=== PATIENT | male | born 1970 | race Caucasian/White ===

== ENCOUNTER → 2016-07-13 | Outpatient (CLI) | payer BC, OTHER ==
[~2016-07-13] VITALS: Ht 177.8 cm; Wt 78.5 kg
[~2016-07-13] MED LIST: AAA; AMBIEN 5 MG TABL5 M1 PO; ANDROGEL150 GM; ANDROGEL150 GM TD; DILAUDID 4 MG TA4 M1 PO; DOLOPHINE HCL10 MG PO; DOLOPHINE HCL5 MG PO; ENDOCET 10-3251 EACH PO; INTERMEZZO1.75 MG SL; LISINOPRIL20 MG PO; LYRICA 50 MG50 MG PO; LYRICA 75 MG CA75 MG PO; LYRICA PO; LYRICA100 MG PO; LYRICA25 PO; METHADONE HCL 110 M1 PO; METHADOSE10 M1 PO; METHADOSE10 MG PO; NUCYNTA100 MG PO; PERCOCET 10-321 EACH PO; REMERON15 M1 PO; REMERON15 MG PO; XANAX 0.25 MG0.25 MG PO; ZANAFLEX4 MG PO
--- NOTE | ~2016-07-13 | HPC ---
[facility] [place] [address] PAIN MANAGEMENT CONSULTATION Name: FREDDY CLOUD YUSEF Room #: REG NEPTALI Finley#: [id number] Admission: 07/13/16 Attend Phys: Nilson Tarango DO Discharge: Date of : 70 Report #: [id number] THIS REPORT FOR: //name// CC: Nilson Madden HISTORY OF PRESENT ILLNESS: The patient is a pleasant 46-year-old gentleman long treated for symptomatic lumbar radiculopathy status post decompressive laminectomy, axial back pain requiring complex medication management. He has a spinal cord stimulator in place. He has been stable on methadone 10 mg t.i.d., Percocet 10/325 one tablet up to 4 times a day, limiting 100 tablets for 30 days. Last urine drug screen 07/29/2015 was positive for prescribed medications. He returns to pain clinic today. He notes medications still provide sufficient analgesia to participate in activities of daily living, rates his average pain about 6/10. 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 He has had more stress at work and increased work load, which is somewhat exacerbated pain. We did talk today at length about need for work and relaxation balance about taking time to exercise and decompress. He understands the importance of this, but ruefully admits that he fails to provide himself at this time. Notes his spinal cord stimulator continued to help to some degree. Primary pain is low back, right leg down to the heel. Pain is a 6/10, exacerbated with activity. PHYSICAL EXAMINATION: Unchanged, pleasant 46-year-old gentleman, BMI is 24.8 kilograms per meter squared. Vital signs stable. Rises from chair using armrest, modestly antalgic gait. Lumbar flexion is limited, favors the right leg, but strength is generally symmetric. We reviewed the fact that opiate medications are being used to provide analgesia adequate to support activities of daily living, not attempting to achieve a specific pain score on the 0-10 Visual Analog Scale. The current opiate medications are providing sufficient analgesia to allow the patient to participate in activities of daily living. The patient is not exhibiting any aberrant behavior suggestive of drug diversion. The patient is not having any adverse reactions to medications. The patient is not suffering from daytime somnolence or mental acuity changes. The patient is managing opiate-induced constipation with appropriate oled-lih-ovklhfp agents and dietary considerations. The patient was counseled on concern for caution with operating a motor vehicle while using opiate medications. A physical exam was performed and the patient's functional status was evaluated. All patients with back pain were advised against the bed rest greater than 4 days and were advised to return to normal activities. [place] [address] PAIN MANAGEMENT CONSULTATION Name: FREDDY CLOUD Room #: REG NEPTALI Finley#: [id number] Admission: 07/13/16 Attend Phys: Nilson Tarango DO Discharge: Date of : 70 Report #: [id number] noted and the treatment plan was reviewed with the patient. All current medications, both prescribed and OTC were reviewed and reconciled on the electronic medical record. Tobacco screening was accomplished and smoking cessation was advised when indicated. BMI was noted and diet/exercise modification was recommended for all patients following outside normal parameters. I reviewed with the patient today their responsibilities to safeguard prescription medications, reviewed their responsibility to utilize medications only as prescribed by the physician. They are to seek and receive pain medications only from 1 physician group ( [facility]). They are to use 1 pharmacy and keep the clinic informed if they change pharmacies. Their responsibilities include making followup visits in a timely fashion and to avoid abrupt discontinuation of medication usage. Their responsibilities further include bringing their medications (bottles from the pharmacy with residual pills) to the visit for possible confirmation of pill counts and the patient understands it is their responsibility to submit to random drug screens to ensure both that the medications prescribed are present, and that no other controlled substances are present. All prescriptions provided today were generated electronically. ASSESSMENT: Lumbar radiculopathy status post decompressive laminectomy, axial back pain requiring complex medication management, stable on baseline medication. RECOMMENDATION: Continue methadone 10 mg t.i.d., Percocet 10/325 one tablet 3-4 times a day, limit 100 tablets for 30 days. Follow up in 3 months for reevaluation. By: [id number] Nilson Tarango DO /nt
[2016-07-13 13:15] VITALS: BP 127/80
== END ==
LOC: PAIN 06:13
DX: M54.16 Radiculopathy, lumbar region (principal); M96.1 Postlaminectomy syndrome, not elsewhere classified; I10 Essential (primary) hypertension; Z87.891 Personal history of nicotine dependence

== ENCOUNTER → 2016-10-02 | Outpatient (CLI) | payer BC, OTHER ==
[~2016-10-02] VITALS: Ht 175.3 cm; Wt 78.3 kg
--- NOTE | ~2016-10-02 | HPC ---
[facility] [place] [address] [place] [address] PAIN MANAGEMENT CONSULTATION Name: FREDYD CLOUD Room #: REG Maddy Finley#: [id number] Admission: 10/02/16 Attend Phys: Nilson Tarango DO Discharge: Date of : 70 Report #: [id number] THIS REPORT FOR: //name// CC: Nilson Madden DATE OF SERVICE: 10/02/2016 The patient is a very pleasant 46-year-old gentleman being treated for symptomatic lumbar radiculopathy status post decompressive laminectomy, axial back pain requiring complex medication management. Last seen in the pain clinic 07/13/2016. Last urine drug screen was about a year prior, 07/29/2015, positive for prescribed medications. Today, I did order a buccal drug swab, no aberrant behavior suggestive for drug diversion, simply complying with opiate consent to treat contract. The patient has continued on methadone 10 mg t.i.d. with Percocet 10/325 one tablet 3-4 times a day, limit #100 tablets for 30 days. Notes that medications are helpful, but seems to be seeing a little dwindling efficacy with the agents. Rates his pain at 3 on a VAS at present, but notes throughout the day, he sometimes has to leave work really due to ongoing axial back pain. Describes pain, primarily right low back, buttock and leg. Has a spinal cord stimulator, which has been quite effective. He did, however, tell me he got at one-time error message when charging the IPG. I suggested we will have [employer] come by at our next visit in 3 months to interrogate the battery. He probably is nearing end of IPG life and will need to have the device replaced. PHYSICAL EXAMINATION: Shows 46-year-old gentleman, BMI is 25.5 kilograms per meter squared. Vital signs stable as noted in the EMR. Rises from chair easily. Gait is modestly antalgic. Lumbar flexion is somewhat limited. The IPG site in the right gluteal area appears fine, no evidence of skin erosion. Lower extremity strength is asymmetric with slight decreased right leg strength compared to the left. Positive straight leg raise on the right as well. We reviewed the fact that opiate medications are being used to provide analgesia adequate to support activities of daily living, not attempting to achieve a specific pain score on the 0-10 Visual Analog Scale. The current opiate medications are providing sufficient analgesia to allow the patient to participate in activities of daily living. The patient is not exhibiting any aberrant behavior suggestive of drug diversion. The patient is not having any adverse reactions to medications. The patient is not suffering from daytime somnolence or mental acuity changes. The [place] [address] PAIN MANAGEMENT CONSULTATION Name: FREDDY CLOUD Room #: REG NEPTALI Finley#: [id number] Admission: 10/02/16 Attend Phys: Nilson Tarango DO Discharge: Date of : 70 Report #: [id number] constipation with appropriate pwth-ack-pemajen agents and dietary considerations. The patient was counseled on concern for caution with operating a motor vehicle while using opiate medications. A physical exam was performed and the patient's functional status was evaluated. All patients with back pain were advised against the bed rest greater than 4 days and were advised to return to normal activities. Pain score assessment was noted and the treatment plan was reviewed with the patient. All current medications, both prescribed and OTC were reviewed and reconciled on the electronic medical record. Tobacco screening was accomplished and smoking cessation was advised when indicated. BMI was noted and diet/exercise modification was recommended for all patients following outside normal parameters. I reviewed with the patient today their responsibilities to safeguard prescription medications, reviewed their responsibility to utilize medications only as prescribed by the physician. They are to seek and receive pain medications only from 1 physician group ( [facility]). They are to use 1 pharmacy and keep the clinic informed if they change pharmacies. Their responsibilities include making followup visits in a timely fashion and to avoid abrupt discontinuation of medication usage. Their responsibilities further include bringing their medications (bottles from the pharmacy with residual pills) to the visit for possible confirmation of pill counts and the patient understands it is their responsibility to submit to random drug screens to ensure both that the medications prescribed are present, and that no other controlled substances are present. All prescriptions provided today were generated electronically. ASSESSMENT: Symptomatic lumbar radiculopathy, status post decompressive laminectomy, axial back pain requiring complex medication management in a pleasant 46-year-old gentleman well known to pain clinic. We spent a prolonged visit today reviewing therapeutic options and concerns. Again, we will get a buccal drug swab today, no aberrant behavior suggestive for drug diversion, simply complying with opiate consent to treat contract. We will have [facility] available at next visit to interrogate the device, again the IPG did give the patient a one-time error message, though it has charged appropriately since that time. He may, however, be nearing end of the IPG battery life. Reviewing the chart, it appears spinal cord stimulator was implanted around summer. We will continue methadone 10 mg t.i.d. and Percocet 10/325 one tablet 3-4 times a day. With a little bit of afternoon somnolence, I talked about rotating to Nucynta. Again, equally analgesic dose will be about 100 mg Nucynta tablet, I had written for this in the past, but it was cost prohibitive, averaging about $400 even with insurance for the patient. We may consider at some point opiate rotation. Again, equally analgesic dose hydromorphone would be about 7 mg. I [facility] [address] [place] [address] PAIN MANAGEMENT CONSULTATION Name: FREDDY CLOUD Room #: REG NEPTALI Hernandez.#: [id number] Admission: 10/02/16 Attend Phys: Nilson Tarango DO Discharge: Date of : 70 Report #: [id number] would likely trial little lower dose that hydromorphone 4 mg p.r.n. breakthrough pain. Today, however, we elected to simply make no changes and continue baseline medication. Discharged in good and stable condition after prolonged visit, spent reviewing multiple therapeutic concerns including battery life for the spinal cord stimulator, opiate rotation, obtaining and reviewing our opiate consent to treat contract. Discharged in good and stable condition after 25 minutes. <ELECTRONICALLY SIGNED> By: Nilson Tarango DO 10/05/16 1253 [id number] Nilson Tarango DO /nt
[2016-10-02 09:59] VITALS: BP 126/75
== END ==
LOC: PAIN 07:02
DX: M54.16 Radiculopathy, lumbar region (principal)

== ENCOUNTER → 2017-04-08 | Outpatient (CLI) | payer BC, OTHER ==
[~2017-04-08] VITALS: Ht 177.8 cm; Wt 79.8 kg
[~2017-04-08] MED LIST changes: +PERCOCET 10-321 EAC1 PO; +PERCOCET 7.5-31 EAC1 PO; +PERCOCET 7.5-31 EACH PO
--- NOTE | ~2017-04-08 | HPC ---
[facility] [place] [address] PAIN MANAGEMENT CONSULTATION Name: FREDDY CLOUD YUSEF Room #: REG Maddy Finley#: [id number] Admission: 04/08/17 Attend Phys: Nilson Tarango DO Discharge: Date of : 70 Report #: [id number] THIS REPORT FOR: //name// CC: Nilson Madden DATE OF SERVICE: 04/08/2017 PAIN CLINIC NOTE The patient is a very pleasant 46-year-old gentleman, long treated for symptomatic lumbar radiculopathy status post decompressive laminectomy, chronic pain syndrome requiring complex medication management. He has a spinal cord stimulator in place which is nearing end of its battery life. He has an appointment with Dr. Jean for consideration for IPG replacement. He returns to pain clinic today noting current medication including methadone 10 mg t.i.d. and Percocet 10/325 one tablet 3-4 times a day. He is providing sufficient analgesia to participate in activities of daily living. 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 He notes his pain score is about a 4 on a VAS at present. Physical examination shows a 46-year-old gentleman, BMI is 25.3 kilograms per meter squared. Vital signs are stable as noted in the EMR. He is a former smoker. History of hypertension. Medication list was reconciled today. Opiate consent to treat contract was signed on 07/29/2015. Rises from chair using armrest. Diffusely tender across the low back. Lumbar flexion is limited. Lower extremity strength, however, is generally preserved with modestly positive straight leg raise, right greater than left. Slight decreased right hip flexion and plantar flexion strength. We reviewed the fact that opiate medications are being used to provide analgesia adequate to support activities of daily living, not attempting to achieve a specific pain score on the 0-10 Visual Analog Scale. The current opiate medications are providing sufficient analgesia to allow the patient to participate in activities of daily living. The patient is not exhibiting any aberrant behavior suggestive of drug diversion. The patient is not having any adverse reactions to medications. The patient is not suffering from daytime somnolence or mental acuity changes. The patient is managing opiate-induced constipation with appropriate egks-qkq-omrxdsr agents and dietary considerations. The patient was counseled on concern for caution with operating a motor vehicle while using opiate medications. A physical exam was performed and the patient's functional status was evaluated. All patients with back pain were advised against the bed rest greater than 4 days and were advised to return to normal activities. Pain score assessment was noted and the treatment plan was reviewed with the patient. All current [address] [address] PAIN MANAGEMENT CONSULTATION Name: FREDDY CLOUD Room #: REG NEPTALI Finley#: [id number] Admission: 04/08/17 Attend Phys: Nilson Tarango DO Discharge: Date of : 70 Report #: [id number] medications, both prescribed and OTC were reviewed and reconciled on the electronic medical record. Tobacco screening was accomplished and smoking cessation was advised when indicated. BMI was noted and diet/exercise modification was recommended for all patients following outside normal parameters. I reviewed with the patient today their responsibilities to safeguard prescription medications, reviewed their responsibility to utilize medications only as prescribed by the physician. They are to seek and receive pain medications only from 1 physician group ( [facility]). They are to use 1 pharmacy and keep the clinic informed if they change pharmacies. Their responsibilities include making followup visits in a timely fashion and to avoid abrupt discontinuation of medication usage. Their responsibilities further include bringing their medications (bottles from the pharmacy with residual pills) to the visit for possible confirmation of pill counts and the patient understands it is their responsibility to submit to random drug screens to ensure both that the medications prescribed are present, and that no other controlled substances are present. All prescriptions provided today were generated electronically. Long discussion with the patient today about therapeutic options, he has had a supratherapeutic load of opiate, at 4:1 conversion for methadone, 30 mg of methadone will equate to about 120 mg of morphine along with an average of 3 Percocet a day (Percocet 10/325 equating to roughly 45 mEq of morphine) for a total daily dose of about 165 mEq of morphine. We have tried lower doses of opiate, but the patient has had decreased function with this. Today, we discussed risks, benefits at length. We have made the conscious decision to continue current medication unchanged. Last drug screen was positive for prescribed medications. It looks like it has been a little greater than 1 year. We will make a note to repeat a random buccal drug swab at next visit. Discharged in good and stable condition. <ELECTRONICALLY SIGNED> By: Nilson Tarango DO 04/09/17 0727 [id number] Nilson Tarango DO /nt
[2017-04-08 12:56] VITALS: BP 136/81
== END ==
LOC: PAIN 07:32
DX: M54.16 Radiculopathy, lumbar region (principal)

== ENCOUNTER → 2017-07-12 | Outpatient (CLI) | payer BC, OTHER ==
[~2017-07-12] VITALS: Ht 177.8 cm; Wt 77.6 kg
[~2017-07-12] MED LIST changes: -PERCOCET 10-321 EAC1 PO
--- NOTE | ~2017-07-12 | HPC ---
[facility] [address] [place] [address] PAIN MANAGEMENT CONSULTATION Name: FREDDY CLOUD Room #: REG NEPTALI Finley#: [id number] Admission: 07/12/17 Attend Phys: Nilson Tarango DO Discharge: Date of : 70 Report #: [id number] THIS REPORT FOR: //name// CC: Nilson Madden HISTORY OF PRESENT ILLNESS: The patient is an extremely pleasant 47-year-old gentleman long treated at the pain clinic for symptomatic lumbar radiculopathy, status post decompressive laminectomy; axial back pain and chronic pain syndrome, requiring complex medication management. The patient has a spinal cord stimulator, which has been quite helpful. Dr. Jean replaced the IPG about 3 weeks ago. I did look at the incision. It is a [employer] stimulator. The incision is healing nicely. The patient has been stable on methadone 10 mg 3 times a day and Percocet 10/325 one tablet 3-4 times a day. Unfortunately, this is a somewhat supratherapeutic load of opiate equating to roughly 165-170 mEq of morphine a day. With this, he has been quite stable. He maintains a full-time work. He has never had any problems with daytime somnolence, acuity changes or constipation. He is functional in his daytime life. He has 20 and 23-year-old children. He is a grandfather. He has never shown any aberrant behavior suggestive for drug diversion. He returns to the pain clinic today. We had a prolonged visit today. Greater than 25 minutes were spent reviewing therapeutic options with the patient. I told him that I will be leaving the practice area and moving out of state. He will need to find another pain provider. I suggested he may follow up with Dr. Moshe Stein at this clinic. His pain is primarily in the right buttock and leg. He describes it as constant, stabbing, rates a 7 on a VAS. It does interfere with activity. At some points, he has to lay flat. 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 Fortunately, he has the ability to take short breaks and lay flat if his pain becomes problematic. He works from home some. PHYSICAL EXAMINATION: Relatively unchanged: GENERAL: A pleasant 47-year-old gentleman. VITAL SIGNS: BMI is 24.5 kilograms per meter squared. Vital signs are stable. MUSCULOSKELETAL: Rises from the chair using the armrest. Gait is modestly antalgic, though lower extremity strength is generally preserved. Positive straight leg raise on the right. I inspected the IPG site in the right gluteal area and it is healing nicely. We reviewed the fact that opiate medications are being used to provide analgesia adequate to support activities of daily living, not attempting to achieve a [address] [address] PAIN MANAGEMENT CONSULTATION Name: FREDDY CLOUD Room #: REG NEPTALI Finley#: [id number] Admission: 07/12/17 Attend Phys: Nilson Tarango DO Discharge: Date of : 70 Report #: [id number] specific pain score on the 0-10 Visual Analog Scale. The current opiate medications are providing sufficient analgesia to allow the patient to participate in activities of daily living. The patient is not exhibiting any aberrant behavior suggestive of drug diversion. The patient is not having any adverse reactions to medications. The patient is not suffering from daytime somnolence or mental acuity changes. The patient is managing opiate-induced constipation with appropriate ibyp-vqd-sdwldsd agents and dietary considerations. The patient was counseled on concern for caution with operating a motor vehicle while using opiate medications. A physical exam was performed and the patient's functional status was evaluated. All patients with back pain were advised against the bed rest greater than 4 days and were advised to return to normal activities. Pain score assessment was noted and the treatment plan was reviewed with the patient. All current medications, both prescribed and OTC were reviewed and reconciled on the electronic medical record. Tobacco screening was accomplished and smoking cessation was advised when indicated. BMI was noted and diet/exercise modification was recommended for all patients following outside normal parameters. I reviewed with the patient today their responsibilities to safeguard prescription medications, reviewed their responsibility to utilize medications only as prescribed by the physician. They are to seek and receive pain medications only from 1 physician group ( [facility]). They are to use 1 pharmacy and keep the clinic informed if they change pharmacies. Their responsibilities include making followup visits in a timely fashion and to avoid abrupt discontinuation of medication usage. Their responsibilities further include bringing their medications (bottles from the pharmacy with residual pills) to the visit for possible confirmation of pill counts and the patient understands it is their responsibility to submit to random drug screens to ensure both that the medications prescribed are present, and that no other controlled substances are present. All prescriptions provided today were generated electronically. ASSESSMENT: Lumbar radiculopathy, status post decompressive laminectomy and chronic pain syndrome, requiring complex medication management. The patient remarkably stable on baseline medications. RECOMMENDATIONS: 1. We will get a buccal drug swab today. No aberrant behavior suggestive of drug diversion, simply complying with opiate consent to treat contract. 2. Renew current medications, including methadone 10 mg t.i.d. I have taken the liberty of writing for 3 months of current medication. We talked about trying to wean opiates over time. I have taken the liberty of decreasing his Percocet from 10/325 to 7.5/325, limit 100 tablets for 30 days. [facility] [address] [place] [address] PAIN MANAGEMENT CONSULTATION Name: FREDDY CLOUD Room #: REG NEPTALI Finley#: [id number] Admission: 07/12/17 Attend Phys: Nilson Tarango DO Discharge: Date of : 70 Report #: [id number] I did take the liberty of writing for 3 months of this medication as well. If, however, he has any problems resulting in decreased functional status over the next 3-4 weeks, I will have him bring back the other 2 prescriptions and we will revert back to the Percocet. The patient does not require renewal of his tizanidine or Zolpidem, which he takes on a p.r.n. basis. Discharged in good and stable condition. <ELECTRONICALLY SIGNED> By: Nilson Tarango DO 07/14/17 0740 [id number] Nilson Tarango DO /nt
[2017-07-12 13:40] VITALS: BP 125/75
== END ==
LOC: PAIN 06:59
DX: M54.16 Radiculopathy, lumbar region (principal); M96.1 Postlaminectomy syndrome, not elsewhere classified; Z79.899 Other long term (current) drug therapy

== ENCOUNTER → 2017-08-09 | Outpatient (CLI) | payer BC, OTHER ==
[~2017-08-09] VITALS: Ht 177.8 cm; Wt 76.2 kg
[~2017-08-09] MED LIST changes: +PERCOCET 10-321 EAC1 PO
--- NOTE | ~2017-08-09 | HPC ---
[facility] [address] [place] [address] PAIN MANAGEMENT CONSULTATION Name: FREDDY CLOUD Room #: REG NEPTALI Finley#: [id number] Admission: 08/09/17 Attend Phys: Nilson Tarango DO Discharge: Date of : 70 Report #: [id number] THIS REPORT FOR: //name// CC: Nilson Madden HISTORY OF PRESENT ILLNESS: The patient is a very pleasant 47-year-old gentleman. He has long been treated at the pain clinic for chronic pain, status post lumbar decompressive laminectomy. I believe he originally came to the pain clinic back in 2004. He has had multiple interventional procedures really with waning efficacy. Progressed to have a spinal cord stimulator implanted, which does give him some paresthesia and relief from about the waist down, but has ongoing pain, low back, right buttock and leg. He has been stable on a moderately high dose opiates, methadone 10 mg t.i.d., Percocet 10/325 one tablet 3-4 times a day. At last visit, we discussed that this is a supratherapeutic load of opiate (equating to roughly 165-170 mEq of morphine a day). We tried weaning Percocet to 7.5/325. The patient returns after 4 weeks of this trial wean. He notes that he is having end of dose failure with the lower dose Percocet. We had briefly considered increasing his long-acting opiate, but given the dosage and the prior efficacy, we elected to simply revert back to Percocet 10/325, limit 100 tablets for 30 days. He also takes tizanidine and zolpidem at bedtime. Random drug screen at last visit 07/12/2017, was reviewed, positive for prescribed medications and no others. The patient does have a spinal cord stimulator in place, the IPG was replaced in June. He does have good coverage. We will ask [employer] to be available at the next visit, see if they can find different stimulatory patterns which may help with ongoing pain control. We did discuss with the patient that we will likely try off and on as we move forward to try and wean opiate overall. PHYSICAL EXAMINATION: Otherwise, unchanged, a pleasant 47-year-old gentleman, BMI is 24.5 kg/m2. Vital signs stable as noted in the EMR. Rises from chair using armrest, modestly antalgic gait, pain in the right leg. Positive straight leg raise on the right. Lower extremity strength is generally preserved, though range of motion testing on the right side does exacerbate pain. We reviewed the fact that opiate medications are being used to provide analgesia adequate to support activities of daily living, not attempting to achieve a specific pain score on the 0-10 Visual Analog Scale. The current opiate medications are providing sufficient analgesia to allow the patient to participate in activities of daily living. The patient is not exhibiting any aberrant behavior suggestive of drug diversion. The patient is not having any adverse reactions to medications. The patient is not suffering from daytime somnolence or mental acuity changes. The patient is managing opiate-induced constipation with appropriate tcgp-msc-yljkylk agents and dietary [address] [address] PAIN MANAGEMENT CONSULTATION Name: FREDDY CLOUD Room #: REG NEPTALI Finley#: [id number] Admission: 08/09/17 Attend Phys: Nilson Tarango DO Discharge: Date of : 70 Report #: [id number] considerations. The patient was counseled on concern for caution with operating a motor vehicle while using opiate medications. A physical exam was performed and the patient's functional status was evaluated. All patients with back pain were advised against the bed rest greater than 4 days and were advised to return to normal activities. Pain score assessment was noted and the treatment plan was reviewed with the patient. All current medications, both prescribed and OTC were reviewed and reconciled on the electronic medical record. Tobacco screening was accomplished and smoking cessation was advised when indicated. BMI was noted and diet/exercise modification was recommended for all patients following outside normal parameters. I reviewed with the patient today their responsibilities to safeguard prescription medications, reviewed their responsibility to utilize medications only as prescribed by the physician. They are to seek and receive pain medications only from 1 physician group ( [facility]). They are to use 1 pharmacy and keep the clinic informed if they change pharmacies. Their responsibilities include making followup visits in a timely fashion and to avoid abrupt discontinuation of medication usage. Their responsibilities further include bringing their medications (bottles from the pharmacy with residual pills) to the visit for possible confirmation of pill counts and the patient understands it is their responsibility to submit to random drug screens to ensure both that the medications prescribed are present, and that no other controlled substances are present. All prescriptions provided today were generated electronically. ASSESSMENT: Chronic axial back pain, lumbar radiculopathy, status post decompressive laminectomy, requiring complex medication management. RECOMMENDATIONS: Again, continue spinal cord stimulator, we will revert back to Percocet 10/325, I provided the patient with prescriptions for release today and 4 weeks and the Percocet 10/325, he did return the 7.5/325 Percocet, limit 100 tablets for 30 days. We will have the patient follow up in 2 months for reevaluation. We will have him follow up with Dr. Moshe Stein. Again, we will ask [employer] to be available for that appointment to consider a spinal cord stimulator change in stimulation patterns to hopefully get a little better overall control, perhaps higher frequency? Discharged in good and stable condition. <ELECTRONICALLY SIGNED> By: Nilson Tarango DO 08/12/17 0716 0836 1300 Nilson Tarango DO /nt
[2017-08-09 08:13] VITALS: BP 130/100
== END ==
LOC: PAIN 06:01
DX: M54.16 Radiculopathy, lumbar region (principal); M54.5 Low back pain; G89.29 Other chronic pain; Z79.899 Other long term (current) drug therapy

== ENCOUNTER → 2018-01-07 | Outpatient (CLI) | payer BC, OTHER ==
[~2018-01-07] VITALS: Ht 177.8 cm; Wt 76.0 kg
--- NOTE | ~2018-01-07 | HPC ---
[facility] [place] [address] PAIN MANAGEMENT CONSULTATION Name: PEDRO LUISFREDDY HOLBROOK Room #: REG [facility] Tushar#: [id number] Admission: 01/07/18 Attend Phys: Neno Stein MD Discharge: Date of : 70 Report #: [id number] THIS REPORT FOR: //name// CC: Neno Madden MD DATE OF SERVICE: 01/07/2018 FOLLOWUP HISTORY: Here for medication renewal, things are going pretty well. Still have some pain in my right leg and calf. HISTORY: The patient is a very pleasant 47-year-old gentleman who has been followed in the Pain Clinic. He has returned today for renewal of his medications. As you recall, he has chronic pain. He is status post decompressive lumbar laminectomy. The patient states that he has had four surgeries. This first surgery was back in 1996. His last surgery occurred after helping his father put a ____ in the house. He has undergone epidural steroid injections. He does have a spinal cord stimulator placed. States that things have been going relatively well over the past month. It turns the stimulator on when he needs it. May have turned it on once or twice over the last month. Overall, things are going reasonably well with his methadone and Percocet. He is having no complications from it. There is no problem with confusion. He is thinking clearly. 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 He feels that the tizanidine is helpful as well. He would like to have his medications renewed. Had replacement of the generator in the spinal cord stimulator in 06/2017. Still has good coverage. ALLERGIES: CODEINE. CURRENT MEDICATIONS: Oxycodone 10/325, methadone 10 mg p.o. t.i.d., Zolpidem for sleep, tizanidine 4 mg, and Zestril 20 mg at bedtime. PAIN CLINIC ASSESSMENT/PQRS: 1. Osteoarthritis/rheumatoid arthritis. The patient has some arthritic changes in his lower back. He has not been treated for rheumatoid arthritis. 2. Height 5 feet 5 inches, weight 167 pounds, BMI 24. 3. Vital signs: Blood pressure 125/82, heart rate 99, respiratory rate 16, and room air saturation 97%. 4. Pain intensity 04/17. 5. Fall risk. The patient has not fallen in the last 3 months. 6. Blood thinner. The patient is not on a blood thinning medication. 7. Hypertension. The patient is being treated for hypertension. 8. Opioids greater than 6 weeks. The patient receives his medication from one source, the Pain Clinic. 9. Risk assessment tool, [place] [address] PAIN MANAGEMENT CONSULTATION Name: FREDDY CLOUD Room #: REG NEPTALI Finley#: [id number] Admission: 01/07/18 Attend Phys: Neno Stein MD Discharge: Date of : 70 Report #: [id number] 10. Functional assessment tool, 49/70. 11. Recreational drug use. The patient denies use of recreational drugs. 12. Tobacco: The patient smoked about 15 years, one half pack per day, has not smoked in the last 3 years. 13. Alcohol: The patient denies use of alcoholic beverages. PHYSICAL EXAMINATION: GENERAL: The patient is a well-developed and well-nourished white male. Appears his stated age. He is alert and oriented x 3. His affect is appropriate. Speech is fluent. HEENT: Normocephalic, atraumatic. Extraocular eye muscles intact. Sclerae nonicteric. NECK: Without adenopathy or JVD. Good range of motion. HEART: Regular rate. S1, S2. EXTREMITIES: Upper extremity muscle strength is judged to be 5/5 for the major muscle groups in the upper extremity. Lower extremity, the patient has some pain and discomfort in the lower portion of his back with pain in the right posterior L5-S1 area and down into the right calf. Has a well-healed scar in the lower portion of his back. Able to walk on heels and toes. Forward bending 60 degrees, left and right lateral bending, left and right rotation not problematic. Reflexes +2 at the knees and +1 at the ankles bilaterally. IMPRESSION: 1. Chronic low back pain status post ____ back syndrome. He has had four surgeries. 2. Chronic pain requiring complex medical management with opioid medication. 3. Spinal cord stimulator in place, used as needed. 4. Hypertension. RECOMMENDATIONS: We discussed treatment option with the patient. Risks and benefits of his medications were again reviewed. Possible complications of the medications were discussed. Possibility of addiction because of opioid use as well as lessening effectiveness secondary to tolerance can develop with use of opioids. Overall, the patient feels that these medications are helpful. They enable him to remain gainfully employed. He is thinking clearly that keeps his medications in a guarded area. He is aware that 72,000 people last year as a result of overdose on medications. He would like to have his medications renewed. A script for his medications of oxycodone/Percocet 10/325 one p.o. t.i.d. to q.i.d. 100 tablets and methadone 10 mg 1 p.o. t.i.d. have been rewritten. By: [id number] Neno Stein MD /violette
[2018-01-07 08:42] VITALS: BP 125/82
== END ==
LOC: PAIN 08:29
DX: M54.5 Low back pain (principal); G89.29 Other chronic pain; I10 Essential (primary) hypertension; Z79.899 Other long term (current) drug therapy; Z87.891 Personal history of nicotine dependence

== ENCOUNTER → 2018-04-06 | Outpatient (CLI) | payer BC, OTHER ==
[~2018-04-06] VITALS: Ht 177.8 cm; Wt 77.6 kg
[~2018-04-06] MED LIST changes: +METHADONE HCL5 MG PO; +METHADOSE5 MG PO; +ZOLPIDEM TARTRA10 MG PO
[2018-04-06 08:19] VITALS: BP 157/100
--- NOTE | 2018-04-06 08:21 | NUR ---
Pain Clinic Assessment: 1. History of Osteoarthritis: NO History of Rheumatoid Arthritis: NO 2. Height: 5 ft. 10 in. 177.8 cm. Weight: 171.0 lb. oz. 77.565 kg. Patient's BMI: 24.5 3. Vital Signs: BP: 157/100 Pulse: 102 Resp: 18 Temp: 02 Sat: 97 ECG Mon: 4. Pain Intensity: 3 5. Fall Risk: Dizziness: N Needs help standing or walking: N Fallen in the last 3 months: N Fall risk comments: 6. Patient on Blood Thinner: None 7. History of Hypertension: Y 8. Opioid Therapy greater than 6 weeks: Y Opiate Contract Signed: 07/29/15 9. Risk Assessment Tool Provided: L0W-0 10. Functional Assessment Tool: 11. Recreational Drug Use: Never Drug Type: Tobacco Use: Former Smoker Tobacco Type: Amount or Packs/day: How Many Years: Alcohol Use: Past use Frequency: Quant:
--- NOTE | 2018-04-07 11:48 | HPC ---
[facility] [address] [address] PAIN MANAGEMENT CONSULTATION Name: FREDDY CLOUD YUSEF Room #: REG NEPTALI Finley#: [id number] Admission: 04/06/18 ������������������ Attend Phys: Susie Jackson Discharge: ������������������ Date of : 70 Report #: [id number] THIS REPORT FOR: //name// CC: Susie Garza [place] DATE OF SERVICE: 04/06/2018 CHIEF COMPLAINT: Low back pain and right leg pain. HISTORY OF PRESENT ILLNESS: This is a very pleasant 47-year-old who returns to the pain clinic today for refill of his medications for his right buttock, low back, and right leg pain. He tells me that his pain score is 3 today. Currently, he says the pain does increase as the day progresses. He said that he uses his spinal cord stimulator very minimally and his medications and lying down help relieve his pain. He denies any constipation issues. He says he manages it without medications with his diet and he does have occasionally some drowsiness. The patient would like a refill of his current medications. ALLERGIES: CODEINE. CURRENT MEDICATIONS: Ambien 10 mg at bedtime p.r.n., tizanidine 4 mg t.i.d. as needed, oxycodone 10/325 three times a day, methadone 10 mg 3 times a day, lisinopril 20 mg daily. PQRS: 1. The patient has some arthritic changes in his lower back. He is not being treated for osteoarthritis. 2. Height is 5 feet 10 inches, weight is 170, BMI is 24. 3. Vital signs: 157/100, pulse is 102, respirations 18, oxygen sat is 97%. 2. Pain score is 3/10. 3. Fall risk. He denies dizziness. Does not need help walking or standing. He has not fallen in the last 3 months. 4. The patient is not on a blood thinner, but does take medicines for hypertension. 5. Opiate therapy is greater than 6 weeks. Therefore, no opiate signed contract is on the chart. 6. Risk assessment tool is low. His functional assessment is 49/70. 7. Recreational drug use, the patient denies. He is a former smoker and does not drink alcohol. We checked the prescription monitoring system. The patient is filling appropriately with his medications from Dr. Stein. He tells me that he safeguards his medications and there is a recent drug screen on his chart. PHYSICAL EXAMINATION: [facility] [address] [place] [address] PAIN MANAGEMENT CONSULTATION Name: PEDRO LUISFREDDY HOLBROOK Room #: REG CLI Tushar#: [id number] Admission: 04/06/18 ������������������ Attend Phys: Susie Jackson Discharge: ������������������ Date of : 70 Report #: [id number] GENERAL: This is a well-developed, well-nourished white gentleman that appears his stated age. He is alert and orientated x 3. His affect is appropriate. His speech is fluent. HEENT: Normocephalic, atraumatic. Extraocular eye muscles are intact. NECK: Without adenopathy or JVD. EXTREMITIES: Upper extremity strength judged to be 5/5 in all major muscle groups. His lower extremity, he does complain of some discomfort in his right leg that radiates down from his back in the L5-S1 dermatomal area. He has a spinal cord stimulator placed. Lower extremity strength judged to be 5/5 in all major muscle groups. IMPRESSION: 1. 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 2. Chronic pain requiring complex medical management of opioid medications. 3. Spinal cord stimulator. 4. Hypertension. We reviewed the fact that opiate medications are being used to provide analgesia adequate to support activities of daily living, not attempting to achieve a specific pain score on the 0-10 Visual Analog Scale. The current opiate medications are providing sufficient analgesia to allow the patient to participate in activities of daily living. The patient is not exhibiting any aberrant behavior suggestive of drug diversion. The patient is not having any adverse reactions to medications. The patient is not suffering from daytime somnolence or mental acuity changes. The patient is managing opiate-induced constipation with appropriate rbbc-rer-apwqwnb agents and dietary considerations. The patient was counseled on concern for caution with operating a motor vehicle while using opiate medications. A physical exam was performed and the patient's functional status was evaluated. All patients with back pain were advised against the bed rest greater than 4 days and were advised to return to normal activities. Pain score assessment was noted and the treatment plan was reviewed with the patient. All current medications, both prescribed and OTC were reviewed and reconciled on the electronic medical record. Tobacco screening was accomplished and smoking cessation was advised when indicated. BMI was noted and diet/exercise modification was recommended for all patients following outside normal parameters. I reviewed with the patient today their responsibilities to safeguard prescription medications, reviewed their responsibility to utilize medications only as prescribed by the physician. They are to seek and receive pain medications only from 1 physician group ([facility]). They are to use 1 pharmacy and keep the clinic informed if they change pharmacies. Their responsibilities include making followup visits in a timely fashion and to avoid abrupt discontinuation of medication usage. Their responsibilities further [facility] [address] [place] [address] PAIN MANAGEMENT CONSULTATION Name: FREDDY CLOUD Room #: REG CLMaddy Finley#: [id number] Admission: 04/06/18 ������������������ Attend Phys: Susie Jackson Discharge: ������������������ Date of : 70 Report #: [id number] include bringing their medications (bottles from the pharmacy with residual pills) to the visit for possible confirmation of pill counts and the patient understands it is their responsibility to submit to random drug screens to ensure both that the medications prescribed are present, and that no other controlled substances are present. All prescriptions provided today were generated electronically. PLAN: 1. We discussed treatment options with the patient today. The patient tells me he is doing well on his current medicines. I discussed the current CDC guidelines and morphine milliequivalents with his medication that puts him at 135 MME per day. I told him it is the policy of this clinic that we are trying to decrease people closer to or below 90 MME, so therefore we would need to decrease him today. I informed the patient that we would do this slowly since he has had issues with trying to decrease in the past and his pain has significantly increased. I explained that we will do this slowly as to prevent any withdrawal symptoms and hopefully his receptors will reset and he is able to tolerate this decrease. We discussed several options of decreasing his medicine whether it be his methadone or his oxycodone. In the end, it was decided with Dr. Stein's assistance with the patient today to decrease his methadone to 7.5 mg 3 times a day, scripts given for 135 pills of 5 mg tablets for today and 4 weeks. 2. The patient will continue on Percocet 10/325 three times a day, #100 for release today and 4 weeks. 3. We encouraged the patient to use his spinal cord stimulator more to help with his transition if he has increase in pain. 4. The patient verbalized his understanding. We will make an appointment with him in 2 months to follow up for his medication management. 5. The patient is seen with Dr. Stein and in collaboration with him today. ��������������������������������������������� <ELECTRONICALLY SIGNED> ���������������������������������������� By: Susie Jackson ��������������������������������������������� 04/07/18 1148 1031 0255 Susie Jackson /nt
== END ==
LOC: PAIN 07:31
DX: M54.5 Low back pain (principal); G89.29 Other chronic pain; I10 Essential (primary) hypertension; Z79.891 Long term (current) use of opiate analgesic; Z79.899 Other long term (current) drug therapy

== ENCOUNTER → 2018-06-08 | Outpatient (CLI) | payer BC, OTHER ==
[~2018-06-08] VITALS: Ht 177.8 cm; Wt 78.5 kg
[2018-06-08 08:09] VITALS: BP 132/85
--- NOTE | 2018-06-08 08:12 | NUR ---
Pain Clinic Assessment: 1. History of Osteoarthritis: NO History of Rheumatoid Arthritis: NO 2. Height: 5 ft. 10 in. 177.8 cm. Weight: 173.0 lb. oz. 78.472 kg. Patient's BMI: 24.8 3. Vital Signs: BP: 132/85 Pulse: 87 Resp: 16 Temp: 02 Sat: 99 ECG Mon: 4. Pain Intensity: 3 5. Fall Risk: Dizziness: N Needs help standing or walking: N Fallen in the last 3 months: N Fall risk comments: 6. Patient on Blood Thinner: None 7. History of Hypertension: Y 8. Opioid Therapy greater than 6 weeks: Y Opiate Contract Signed: 07/29/15 9. Risk Assessment Tool Provided: L0W-0 10. Functional Assessment Tool: 49/ 11. Recreational Drug Use: Never Drug Type: Tobacco Use: Former Smoker Tobacco Type: Amount or Packs/day: How Many Years: Alcohol Use: Past use Frequency: Quant:
--- NOTE | 2018-06-09 13:29 | HPC ---
[facility] [address] [place] [address] PAIN MANAGEMENT CONSULTATION Name: FREDDY CLOUD YUSEF Room #: REG Maddy Finley#: [id number] Admission: 06/08/18 ������������������ Attend Phys: Susie Jackson Discharge: ������������������ Date of : 70 Report #: [id number] THIS REPORT FOR: //name// CC: Susie Garza [place] DATE OF SERVICE: 06/08/2018 CHIEF COMPLAINT: Low back pain and right leg pain. HISTORY OF PRESENT ILLNESS: This is a very pleasant 48-year-old gentleman who returns to the pain clinic today for a refill of his medications. Last visit that we saw him in March, we had decreased his methadone to try and get closer to the CDC guidelines of 90 morphine mEq or below. The patient tells me that he is doing quite well with this decrease, still able to function and do his job, rating his pain score as a 3/10 today. He tells me most of his pain is in his right buttock and his right leg that radiates down into his calf and heel. It is achy, stabbing pain, worse as the day progresses. He tells me he is having some problems with constipation, trying to control this with diet, but also is taking some fzts-soy-ndxtdat stool softeners. He feels that the decrease in his medication has not noticed much change and feels like he can continue at this current dose and would like refills today. ALLERGIES: CODEINE. CURRENT MEDICATIONS: Methadone 7.5 mg 3 times a day, Percocet 10/325 3-4 times a day, Ambien 10 mg at bedtime, tizanidine 4 mg 3 times a day p.r.n. and lisinopril 20 mg daily. PQRS: 1. He has some arthritic changes in his lower back. He is not being treated for rheumatoid arthritis. 2. Height is 5 feet 10 inches, weight is 173, BMI is 24. 3. Vital signs: Blood pressure 132/85, pulse is 87, respirations 16, oxygen sat 99. 4. Pain score is 3/10. 5. Dizziness. He denies. He denies any help standing or walking and he has not fallen in the last 3 months. 6. The patient is not on any blood thinners, but does take medicine for hypertension. 7. Opioid therapy is greater than 6 weeks; therefore, an opioid signed contract is on the chart. His risk assessment tool is low. His functional assessment is 49/70. 8. Recreational drug use. He denies. He is a former smoker and [place] [address] PAIN MANAGEMENT CONSULTATION Name: FREDDY CLOUD Room #: REG NEPTALI Finley#: [id number] Admission: 06/08/18 ������������������ Attend Phys: Susie Jackson Discharge: ������������������ Date of : 70 Report #: [id number] We did check the prescription monitoring system. The patient is filling appropriately for his medications and is due today for medication refill. There is a drug screen on the chart in the past year. He tells me that he does safeguards his medications. PHYSICAL EXAMINATION: GENERAL: This is a well-developed, well-nourished white gentleman who appears his stated age, placing his pain score today at 3/10. His affect is appropriate. His speech is fluent. HEENT: Normocephalic, atraumatic. Extraocular eye muscles are intact. Mucous membranes are moist. NECK: Without adenopathy or JVD. EXTREMITIES: His lower extremity: Complains of pain in his right leg that radiates following the L5-S1 dermatome to his right ankle. He has a spinal cord stimulator in place and uses it as needed. His lower extremity strength judged to be 5/5 in all major muscle groups. IMPRESSION: 1. 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 2. Chronic pain regarding complex medical management of opioid medications. 3. Spinal cord stimulator. 4. Hypertension. We reviewed the fact that opiate medications are being used to provide analgesia adequate to support activities of daily living, not attempting to achieve a specific pain score on the 0-10 Visual Analog Scale. The current opiate medications are providing sufficient analgesia to allow the patient to participate in activities of daily living. The patient is not exhibiting any aberrant behavior suggestive of drug diversion. The patient is not having any adverse reactions to medications. The patient is not suffering from daytime somnolence or mental acuity changes. The patient is managing opiate-induced constipation with appropriate zisu-ofp-cejribo agents and dietary considerations. The patient was counseled on concern for caution with operating a motor vehicle while using opiate medications. A physical exam was performed and the patient's functional status was evaluated. All patients with back pain were advised against the bed rest greater than 4 days and were advised to return to normal activities. Pain score assessment was noted and the treatment plan was reviewed with the patient. All current medications, both prescribed and OTC were reviewed and reconciled on the electronic medical record. Tobacco screening was accomplished and smoking cessation was advised when indicated. BMI was noted and diet/exercise modification was recommended for all patients following outside normal parameters. I reviewed with the patient today [facility] [address] [address] PAIN MANAGEMENT CONSULTATION Name: FREDDY CLOUD Room #: REG CLMaddy Finley#: [id number] Admission: 06/08/18 ������������������ Attend Phys: Susie CURRIE Manuel Discharge: ������������������ Date of : 70 Report #: [id number] prescription medications, reviewed their responsibility to utilize medications only as prescribed by the physician. They are to seek and receive pain medications only from 1 physician group ( [facility]). They are to use 1 pharmacy and keep the clinic informed if they change pharmacies. Their responsibilities include making followup visits in a timely fashion and to avoid abrupt discontinuation of medication usage. Their responsibilities further include bringing their medications (bottles from the pharmacy with residual pills) to the visit for possible confirmation of pill counts and the patient understands it is their responsibility to submit to random drug screens to ensure both that the medications prescribed are present, and that no other controlled substances are present. All prescriptions provided today were generated electronically. PLAN: 1. We discussed treatment options with the patient today. The patient is doing quite well with reduction of his pain medicines since our last visit. His current morphine milliequivalent is 112. This is still above the CDC guidelines, but we will slowly decrease him again in another 4 months after his body has adjusted to the recent reduction. The patient tells me that he is doing well with his reduction and has not noticed much change in his pain level. 2. Scripts given today for methadone 5 mg tablets, to take 7.5 mg 3 times a day, quantity 135 for today and 4-week release and Percocet 10/325, #100 for today and 4-week release. 3. 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 4. The patient did see Dr. Stein today who also collaborated with care. The patient will follow up in 2 months. ��������������������������������������������� <ELECTRONICALLY SIGNED> ���������������������������������������� By: Susie Jackson ��������������������������������������������� 06/09/18 [id number] [id number] Susie Jackson /nt
== END ==
LOC: PAIN 06:53
DX: M54.5 Low back pain (principal); G89.29 Other chronic pain; M79.604 Pain in right leg; I10 Essential (primary) hypertension; Z79.891 Long term (current) use of opiate analgesic; Z79.899 Other long term (current) drug therapy

== ENCOUNTER → 2018-08-17 | Outpatient (CLI) | payer BC, OTHER ==
[~2018-08-17] VITALS: Ht 177.8 cm; Wt 79.4 kg
[2018-08-17 08:12] VITALS: BP 112/75
--- NOTE | 2018-08-17 08:15 | NUR ---
Pain Clinic Assessment: 1. History of Osteoarthritis: NO History of Rheumatoid Arthritis: NO 2. Height: 5 ft. 10 in. 177.8 cm. Weight: 175.0 lb. oz. 79.380 kg. Patient's BMI: 25.1 3. Vital Signs: BP: 112/75 Pulse: 85 Resp: 16 Temp: 02 Sat: 97 ECG Mon: 4. Pain Intensity: 5 5. Fall Risk: Dizziness: N Needs help standing or walking: N Fallen in the last 3 months: N Fall risk comments: 6. Patient on Blood Thinner: None 7. History of Hypertension: Y 8. Opioid Therapy greater than 6 weeks: Y Opiate Contract Signed: 07/29/15 9. Risk Assessment Tool Provided: L0W-0 10. Functional Assessment Tool: 11. Recreational Drug Use: Never Drug Type: Tobacco Use: Former Smoker Tobacco Type: Amount or Packs/day: How Many Years: Alcohol Use: Past use Frequency: Quant:
--- NOTE | 2018-08-18 09:34 | HPC ---
[facility] [place] [address] PAIN MANAGEMENT CONSULTATION Name: PEDRO LUISFREDDY HOLBROOK Room #: REG [facility] Tushar#: [id number] Admission: 08/17/18 ������������������ Attend Phys: Susie Jackson Discharge: ������������������ Date of : 70 Report #: [id number] THIS REPORT FOR: //name// CC: Susie Garza [place] DATE OF SERVICE: 08/17/2018 CHIEF COMPLAINT: Low back pain and right leg pain. HISTORY OF PRESENT ILLNESS: This is a very pleasant 48-year-old gentleman who returns to the pain clinic today for ongoing medical management for his low back pain and right leg and buttock pain. The patient tells me his pain score is 5 currently that is slightly higher than his normal morning pain score of a 2-3. He told me that he had to do some prolong standing, which aggravates his pain. Usually, his pain is worse as the day progresses. His medications are helpful as well as lying down. He tells me he does not feel overmedicated. He does not have problems with constipation. It is controlled by diet. Since the last visit with this gentleman in June, he has decreased his methadone on his own from 7.5 mg 3 times a day to 5 mg in the morning and 7.5 mg twice a day. He feels like he is overall doing well on this current dose. ALLERGIES: CODEINE. CURRENT LIST OF MEDICATIONS: Percocet 10/325 p.r.n.; methadone 5 mg in the morning and 7.5 mg at noon and 7.5 mg at night; tizanidine p.r.n.; Ambien p.r.n. and lisinopril 20 mg daily. PQRS: The patient has some arthritic changes in his lumbar spine. He is not being treated for rheumatoid arthritis. Height is 5 feet 10 inches, weight is 175 and BMI is 25. Vital signs: Blood pressure 112/75, pulse is 85, respirations 16 and oxygen sat 95. Pain score 5/10. Fall risk, denies dizziness. Does not need help walking or standing, has not fallen in the last 3 months. The patient is not on any blood thinners but does take medicine for hypertension. His opioid therapy is greater than 6 weeks; therefore, an opioid signed contract is on the chart. His risk assessment tool is low. Functional assessment is 49/70. Recreational drug use, he denies. He is a former smoker and does not drink alcohol. We did check the prescription monitoring system. The patient is filling appropriately for his medications and we did check a drug screen randomly on this patient today. He does tell me he safeguards his medications. PHYSICAL EXAMINATION: VITAL SIGNS: This is a well-developed, well-nourished white gentleman who [facility] [address] [place] [address] PAIN MANAGEMENT CONSULTATION Name: FREDDY CLOUD Room #: REG NEPTALI Finley#: [id number] Admission: 08/17/18 ������������������ Attend Phys: Susie Jackson Discharge: ������������������ Date of : 70 Report #: [id number] appears his stated age, placing his current pain score at 5/10 today. His affect is appropriate and he is alert and oriented. HEENT: Normocephalic and atraumatic. Extraocular eye muscles are intact. Mucous membranes are moist. NECK: Without adenopathy or JVD. EXTREMITIES: He complains of right leg pain that radiates from his lower back down his right buttock following the L5-S1 dermatomal distribution to his ankle. He does have a spinal cord stimulator in place that he uses as needed. His lower extremity strength judged to be 5/5 in all major muscle groups with symmetry in tone. He walks with a slightly antalgic gait. IMPRESSION: 1. 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 2. Chronic pain requiring complex medical management of opioid medications. 3. Spinal cord stimulator. 4. Hypertension. We reviewed the fact that opiate medications are being used to provide analgesia adequate to support activities of daily living, not attempting to achieve a specific pain score on the 0-10 Visual Analog Scale. The current opiate medications are providing sufficient analgesia to allow the patient to participate in activities of daily living. The patient is not exhibiting any aberrant behavior suggestive of drug diversion. The patient is not having any adverse reactions to medications. The patient is not suffering from daytime somnolence or mental acuity changes. The patient is managing opiate-induced constipation with appropriate hqoa-ydr-uuaywpe agents and dietary considerations. The patient was counseled on concern for caution with operating a motor vehicle while using opiate medications. A physical exam was performed and the patient's functional status was evaluated. All patients with back pain were advised against the bed rest greater than 4 days and were advised to return to normal activities. Pain score assessment was noted and the treatment plan was reviewed with the patient. All current medications, both prescribed and OTC were reviewed and reconciled on the electronic medical record. Tobacco screening was accomplished and smoking cessation was advised when indicated. BMI was noted and diet/exercise modification was recommended for all patients following outside normal parameters. I reviewed with the patient today their responsibilities to safeguard prescription medications, reviewed their responsibility to utilize medications only as prescribed by the physician. They are to seek and receive pain medications only from 1 physician group ( [facility]). They are to use 1 pharmacy and keep the clinic informed if they change pharmacies. Their responsibilities include making followup visits in a timely fashion and to avoid abrupt discontinuation of medication usage. Their responsibilities further [facility] [address] [place] [address] PAIN MANAGEMENT CONSULTATION Name: FREDDY CLOUD [id number] Admission: 08/17/18 ������������������ Attend Phys: Susie Jackson Discharge: ������������������ Date of : 70 Report #: [id number] include bringing their medications (bottles from the pharmacy with residual pills) to the visit for possible confirmation of pill counts and the patient understands it is their responsibility to submit to random drug screens to ensure both that the medications prescribed are present, and that no other controlled substances are present. All prescriptions provided today were generated electronically. PLAN: 1. We discussed treatment options with the patient today. We did obtain a specimen for random drug screen on him since it had been greater than one year. 2. The patient tells me he had decreased his methadone slightly and feels like overall he is doing okay, wondering when he will need to decrease again. I explained to him. We will not decrease it for several months. If he feels that he is able to decrease half a pill of his methadone on his own. He is welcome to try that. It does take a while for his body to adjust to the new level of pain medicine. The patient verbalizes understanding. He was able to do that for the last 2 months. He would like to get to 90 morphine milliequivalents and understand that he needs to drop to 5 mg 3 times a day in order to obtain that number according to the CDC guidelines but we are not changing his strengths today. 3. Scripts given today for methadone 5 mg, #120, 5 mg in the morning and 7.5 at noon and at bedtime for today and 4-week release; Percocet 10, #100, the patient to take 3-4 times a day as needed. 4. The patient is seen by Dr. Ric Stein who did collaborate care as well today. ��������������������������������������������� <ELECTRONICALLY SIGNED> ���������������������������������������� By: Susie Jackson ��������������������������������������������� 08/18/18 0934 [id number] 1020 Susie Jackson /nt
== END ==
LOC: PAIN 06:51
DX: M54.5 Low back pain (principal); M79.604 Pain in right leg; G89.29 Other chronic pain; I10 Essential (primary) hypertension; Z79.891 Long term (current) use of opiate analgesic

== ENCOUNTER → 2018-10-14 | Outpatient (CLI) | payer BC, OTHER ==
[~2018-10-14] VITALS: Ht 177.8 cm; Wt 78.7 kg
[~2018-10-14] MED LIST changes: +PRINIVIL20 MG PO
--- NOTE | ~2018-10-14 | HPC ---
[facility] [place] [address] PAIN MANAGEMENT CONSULTATION Name: FREDDY CLOUD YUSEF Room #: REG [facility] Tushar#: [id number] Admission: 10/14/18 ������������������ Attend Phys: Neno Stein MD Discharge: ������������������ Date of : 70 Report #: [id number] THIS REPORT FOR: //name// CC: Neno Madden DATE OF SERVICE: 10/14/2018 CHIEF COMPLAINT: "Medications are still effective and I would like to have them renewed." HISTORY: The patient is a 48-year-old gentleman who has been followed in the pain clinic. As you recall, he has chronic pain. He is status post decompression laminectomy. The patient has had 4 back surgeries. His first surgery was in 1996. His last surgery occurred after helping his father put a roof on the house. He has undergone epidural steroid injections. He does have a spinal cord stimulator in place. He states that it is helpful. He uses when he needs it. Overall, things are going reasonably well. He feels that the methadone and Percocet medication help. He does not have any problems with thinking. He takes medication as prescribed. 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 There is no fogging of his memory or problems with his thinking with his current medical regimen. Tizanidine continues to be helpful with muscle spasms. ALLERGIES: CODEINE. CURRENT MEDICATIONS: Oxycodone 10/325 mg, methadone 10 mg 1 p.o. t.i.d., Zolpidem for sleep, tizanidine 4 mg, and Zestril at bedtime. PAIN CLINIC ASSESSMENT AND PQRS: 1. Osteoarthritis/rheumatoid arthritis. The patient has some arthritic changes in his lower back. He has had surgeries. He is not being treated for rheumatoid arthritis. 2. Height 5 feet 10 inches, weight 173 pounds, BMI is 24.9. 3. Vital Signs: Blood pressure 133/93, pulse 95, respiratory rate 16, room air saturation 97%. 4. Pain intensity 10. 5. Fall history: The patient has not fallen in the last 3 months. 6. Blood thinner. The patient is not on a blood thinning medication. 7. Hypertension. The patient is being treated for hypertension. 8. Opioids greater than 6 weeks. The patient receives medication from one source, the pain clinic. 9. Risk assessment tool, low for opioid use. 10. Functional assessment tool 49/70. 11. Recreational drug use. The patient denies use of recreational drugs. 12. Tobacco: The patient denies use of tobacco. [address] [address] PAIN MANAGEMENT CONSULTATION Name: FREDDY CLOUD [facility] #: [facility] [id number] Admission: 10/14/18 ������������������ Attend Phys: Neno Stein MD Discharge: ������������������ Date of : 70 Report #: [id number] 13. Alcohol: The patient denies frequent use of alcoholic beverages. PHYSICAL EXAMINATION: GENERAL: The patient is a well-developed, well-nourished white male. Appears his stated age. He is alert and oriented x 3. His affect is appropriate. Speech is fluent. HEENT: Normocephalic, atraumatic. Extraocular eye muscles intact. Sclerae nonicteric. Mucous membranes are moist. NECK: Without adenopathy or JVD. Good range of motion. HEART: Regular rate. S1, S2. EXTREMITIES: Upper extremity muscle strength judged to be 5/5 for the major muscle groups in the upper extremity. Lower extremity, the patient has some pain and discomfort in the lower portion of his back. He has pain in the L5-S1 dermatomal distribution on the right with pain down into the calf. He has a well-healed scar in the lower portion of his back. He walks with a slightly forward lean today. IMPRESSION: 1. Chronic low back pain, status post failed back syndrome. 2. History of 4 back surgeries. 3. Chronic pain, requiring complex medical management with use of opioid medications. 4. Spinal cord stimulator in place, used as needed. 5. Hypertension. RECOMMENDATIONS: We discussed treatment options with the patient. At this juncture, we will continue with his medications. He feels the medications are helpful. He has a somewhat cerebral jaw. He has not had any problems with his medications affecting his ability to think. He has returned today for renewal of his medications. Overall, he continues to have some pain and discomfort that radiates down into his leg. We have again discussed the problems with opioids. He is aware that opioid medications can be helpful for pain control in some people. Some patients can develop addiction. The patient is not exhibiting any addictive behavior. He has taken the medication as prescribed. He has returned today in a prescription for his medications of Percocet 10/325 one p.o. t.i.d. to q.i.d. have been renewed, 100 tablets have been dispensed. The patient will also continue with methadone 10 mg 1 p.o. t.i.d. as written. He will call us if he has any concerns or problems with his medications. We would like to thank you for letting us participate in his care. We hope he continues to improve. ��������������������������������������������� ���������������������������������������� By: ��������������������������������������������� [id number] Neno Stein MD /nt
[2018-10-14 08:06] VITALS: BP 133/93
--- NOTE | 2018-10-14 08:17 | NUR ---
Pain Clinic Assessment: 1. History of Osteoarthritis: NO History of Rheumatoid Arthritis: NO 2. Height: 5 ft. 10 in. 177.8 cm. Weight: 173.4 lb. oz. 78.654 kg. Patient's BMI: 24.9 3. Vital Signs: BP: 133/93 Pulse: 95 Resp: 16 Temp: 02 Sat: 97 ECG Mon: 4. Pain Intensity: 5 avg 5. Fall Risk: Dizziness: N Needs help standing or walking: N Fallen in the last 3 months: N Fall risk comments: 6. Patient on Blood Thinner: None 7. History of Hypertension: Y 8. Opioid Therapy greater than 6 weeks: Y Opiate Contract Signed: 07/29/15 9. Risk Assessment Tool Provided: L0W-0 10. Functional Assessment Tool: 49/ 11. Recreational Drug Use: Never Drug Type: Tobacco Use: Former Smoker Tobacco Type: Amount or Packs/day: How Many Years: Alcohol Use: Past use Frequency: Quant:
== END ==
LOC: PAIN 06:46
DX: M54.5 Low back pain (principal); G89.29 Other chronic pain; I10 Essential (primary) hypertension

== ENCOUNTER → 2018-12-14 | Outpatient (CLI) | payer BC, OTHER ==
[~2018-12-14] VITALS: Ht 177.8 cm; Wt 79.2 kg
[2018-12-14 09:23] VITALS: BP 115/71
--- NOTE | 2018-12-14 09:43 | NUR ---
Pain Clinic Assessment: 1. History of Osteoarthritis: NO History of Rheumatoid Arthritis: NO 2. Height: 5 ft. 10 in. 177.8 cm. Weight: 174.6 lb. oz. 79.198 kg. Patient's BMI: 25.1 3. Vital Signs: BP: 115/71 Pulse: 89 Resp: 16 Temp: 02 Sat: 99 ECG Mon: 4. Pain Intensity: 6-7 5. Fall Risk: Dizziness: N Needs help standing or walking: N Fallen in the last 3 months: N Fall risk comments: 6. Patient on Blood Thinner: None 7. History of Hypertension: Y 8. Opioid Therapy greater than 6 weeks: Y Opiate Contract Signed: 07/29/15 9. Risk Assessment Tool Provided: L0W-0 10. Functional Assessment Tool: 11. Recreational Drug Use: Never Drug Type: Tobacco Use: Former Smoker Tobacco Type: Amount or Packs/day: How Many Years: Alcohol Use: Past use Frequency: Quant:
--- NOTE | 2019-01-03 09:25 | HPC ---
[facility] [address] [place] [address] PAIN MANAGEMENT CONSULTATION Name: PEDRO LUISFREDDY HOLBROOK Room #: REG [facility] Tushar#: [id number] Admission: 12/14/18 Attend Phys: Neno Stein MD Discharge: Date of : 70 Report #: [id number] THIS REPORT FOR: //name// CC: Neno Madden DATE OF SERVICE: 12/14/2018 CHIEF COMPLAINT: "Things have gone reasonably well. Medication continues to be helpful." HISTORY: The patient is a 48-year-old gentleman who has been followed in the pain clinic. As you are aware, he has had surgery in the past. He has post-laminectomy syndrome. He has had four back surgeries. First surgery was in 1996. He was helping his father put a roof on the house. Epidural steroid injections were performed. They became less effective. He did have a spinal cord stimulator placed to help with his pain. Feels there is still some benefit. He feels his medications Percocet and methadone are helpful. These able him to stay gainfully employed. Not having any problems with his memory. Notes that the pain becomes worse with prolonged standing, walking, sitting, and with certain activities. It radiates down his right buttocks and into his right leg. There is some low back discomfort as well. Rates his pain as a 6-7/10. He has returned today with the hopes of renewing his medications to continue which is helping with his pain control. ALLERGIES: CODEINE. CURRENT MEDICATIONS: Oxycodone 10/325, methadone 10 mg 1 p.o. t.i.d., zolpidem for sleep, tizanidine 4 mg, and Zestril at bedtime. PAIN CLINIC ASSESSMENT AND PQRS: 1. Osteoarthritis/rheumatoid arthritis. The patient has some arthritic changes in his low back area. He has had surgeries. He is not being treated for rheumatoid arthritis. 2. Height 5 feet 10 inches, weight 174 pounds, BMI is 25.1. 3. Vital signs: Blood pressure 114/71, pulse 89, respiratory rate 16, room air saturation 99%. 4. Pain intensity 3-4 at times can be as high as a 6-7. 5. Fall risk. The patient has not fallen in the last 3 months. 6. Blood thinner. The patient is not on a blood thinning medication. 7. Hypertension. The patient is being treated for hypertension. 8. Opioids greater than 6 weeks. The patient received medication from one source, pain clinic. 9. Risk assessment tool, low for opioid use. 10. Functional assessment tool, 49/70. 11. Recreational drug use: [place] [address] PAIN MANAGEMENT CONSULTATION Name: FREDDY CLOUD Room #: REG [facility] Finley#: [id number] Admission: 12/14/18 Attend Phys: Neno Stein MD Discharge: Date of : 70 Report #: [id number] 12. Tobacco: The patient denies use of tobacco, but does vape. 13. Alcohol. The patient rarely drinks alcoholic beverages. PHYSICAL EXAMINATION: GENERAL: The patient is a well-developed, well-nourished white male. Appears his stated age. He is alert and oriented x 3. His affect is appropriate. Speech is fluent. HEENT: Normocephalic, atraumatic. Extraocular eye muscles intact. Sclerae nonicteric. Mucous membranes are moist. NECK: Without adenopathy or JVD. HEART: Regular rate. S1, S2. EXTREMITIES: Upper extremity muscle strength judged to be 5/5 for the major muscle groups in the upper extremity. The patient without significant scoliosis, kyphosis, or lordosis. The patient has well-healed scars in the lower portion of his back. Has pain in the L4-L5, L5-S1 dermatomal distribution involving the right, down into his calf. Walks with leaning forward slightly. Slight antalgic gait. IMPRESSION: 1. Chronic low back pain, status post failed back syndrome. 2. History of 4 back surgeries. 3. Chronic pain, requiring complex medical management using opioids. 4. Spinal cord stimulator in place and used as needed. 5. Hypertension. RECOMMENDATIONS: We discussed treatment options with the patient. At this juncture, we will continue with his medications. He is aware that opioid medications can become problematic for some people. He is using medications as prescribed. He is not having any complications with the medications. He would like to continue with his medications. A script for his medications are being rewritten. We will continue with methadone 5 mg 1 p.o. t.i.d. A total of 120 tablets have been dispensed per month. We will continue with Percocet 10 mg 1 p.o. t.i.d. to q.i.d., a total of 100 tablets monthly have been written. He will call us if he has any concerns. We would like to thank you for letting us participate in his care. We hope he continues to improve. <ELECTRONICALLY SIGNED> By: Neno Stein MD 01/03/19 0925 [id number] Neno Stein MD /nt
== END ==
LOC: PAIN 06:54
DX: M54.5 Low back pain (principal); G89.29 Other chronic pain; I10 Essential (primary) hypertension

== ENCOUNTER → 2019-02-17 | Outpatient (CLI) | payer BC, OTHER ==
[~2019-02-17] VITALS: Ht 177.8 cm; Wt 80.7 kg
[2019-02-17 08:12] VITALS: BP 138/86
--- NOTE | 2019-02-17 08:21 | NUR ---
Pain Clinic Assessment: 1. History of Osteoarthritis: DENIES History of Rheumatoid Arthritis: DENIES 2. Height: 5 ft. 10 in. 177.8 cm. Weight: 178.0 lb. oz. 80.740 kg. Patient's BMI: 25.5 3. Vital Signs: BP: 138/86 Pulse: 88 Resp: 14 Temp: 02 Sat: 100 ECG Mon: 4. Pain Intensity: 3-6 5. Fall Risk: Dizziness: N Needs help standing or walking: N Fallen in the last 3 months: N Fall risk comments: 6. Patient on Blood Thinner: None 7. History of Hypertension: Y 8. Opioid Therapy greater than 6 weeks: Y Opiate Contract Signed: 07/29/15 9. Risk Assessment Tool Provided: L0W-0 10. Functional Assessment Tool: 11. Recreational Drug Use: Never Drug Type: Tobacco Use: Former Smoker Tobacco Type: Amount or Packs/day: How Many Years: Alcohol Use: Past use Frequency: Quant:
--- NOTE | 2019-02-23 22:13 | HPC ---
[facility] [address] [place] [address] PAIN MANAGEMENT CONSULTATION Name: PEDRO LUISFREDDY HOLBROOK Room #: REG [facility] Tushar#: [id number] Admission: 02/17/19 Attend Phys: Neno Stein MD Discharge: Date of : 70 Report #: [id number] THIS REPORT FOR: //name// CC: Neno Madden DATE OF SERVICE: 02/17/2019 CHIEF COMPLAINT: Here for medication renewal. HISTORY: The patient is a 48-year-old gentleman who has been followed in the pain clinic because of chronic pain. As you are aware, he has had surgery in the past. Suffers from post-laminectomy syndrome. He has had four back surgeries. First back surgery was in 1996. He was helping his father, place a roof on the house. He has undergone epidural steroid injections in the past. After they become less effective, he had placement of a spinal cord stimulator. He feels that his current medications help to control his pain. He feels more pain because of the stress of this time of year. Overall, he would like to continue with his medications. He is using the medication as prescribed. Notes that he has pain that radiates down into his buttocks and into his right leg. Rates his pain today as a 3-4/10. ALLERGIES: CODEINE. CURRENT MEDICATIONS: Oxycodone 10/325, methadone 10 mg 1 p.o. t.i.d., zolpidem for sleep, tizanidine 4 mg, Zestril at bedtime. PAIN CLINIC AND PQRS: 1. The patient denies any osteoarthritic changes other than those noted in his low back from surgery. Denies rheumatoid arthritis. 2. Height 5 feet 10 inches, weight 178 pounds, BMI is 25.5. 3. Vital Signs: Blood pressure 138/86, pulse 88, respiratory rate 14, room air saturations 100%. 4. Pain intensity 3-4/10. 5. Fall risk. The patient does not fall in the last three months. 6. Blood thinner. The patient is not on a blood thinning medication. 7. Hypertension. The patient is being treated for hypertension. 8. Opioids greater than 6 weeks. The patient receives medication from one source, pain clinic. 9. Functional assessment tool 47/. 10. Recreational drug use. The patient denies recreational drugs. 11. Tobacco: The patient. 12. Alcohol. The patient rarely drinks alcoholic beverages. PHYSICAL EXAMINATION: GENERAL: The patient is a well-developed, well-nourished [place] [address] PAIN MANAGEMENT CONSULTATION Name: FREDDY CLOUD Room #: REG [facility].#: [id number] Admission: 02/17/19 Attend Phys: Neno Stein MD Discharge: Date of : 70 Report #: [id number] his stated age. He is alert and oriented x 3. Affect is appropriate. Speech is fluent. HEAD, EYES, EARS, NOSE, AND THROAT: Normocephalic, atraumatic. Extraocular eye muscles intact. Sclerae nonicteric. Mucous membranes are moist. NECK: Without adenopathy or JVD. HEART: Regular rate. ABDOMEN: Nontender. EXTREMITIES: Upper extremity muscle strength judged to be 5/5 for the major muscle groups in the upper extremity. MUSCULOSKELETAL: Without significant scoliosis, kyphosis or lordosis. Well-healed scar in the lower portion of his back. Has pain in the L4-L5 and L5-S1 dermatomal distribution involving down into his calf. Walks with a slight forward lean. Has slight antalgic gait. IMPRESSION: 1. Chronic low back pain, status post failed back surgery. 2. History of four back surgeries. 3. Chronic pain, requiring complex medical management using opioids. 4. Spinal cord stimulator in place and used as needed. 5. Hypertension. RECOMMENDATION: The patient has found that his medications are helpful. He returns today for renewal of medications. He is aware of that 70,000 people last year as a result of overdosing of medications. He is not showing signs of addiction. He has taken the medication as prescribed. He is aware that the medications have a limitation. He feels medications are working reasonably well. He would like to have them renewed. We will renew his medications. A script for his medications has been rewritten. He will continue with methadone 7.5 mg at noon, 5 mg a.m. and at bedtime, total of 120 tablets have been provided. The patient will also continue Percocet 10 mg 1 p.o. t.i.d. to q.i.d., a total of 100 tablets have been provided. He will call us if he has any concerns. We would like to thank you for letting us to participate in his care. We hope he continues to improve. <ELECTRONICALLY SIGNED> By: Neno Stein MD 02/23/19 2213 [id number] 1532 Neno Stein MD /TEJA
== END ==
LOC: PAIN 06:47
DX: M54.5 Low back pain (principal); G89.29 Other chronic pain; I10 Essential (primary) hypertension; Z98.890 Other specified postprocedural states; Z88.5 Allergy status to narcotic agent; Z79.899 Other long term (current) drug therapy

== ENCOUNTER → 2019-04-14 | Outpatient (CLI) | payer BC, OTHER ==
[~2019-04-14] VITALS: Ht 177.8 cm; Wt 81.2 kg
[2019-04-14 09:26] VITALS: BP 105/67
--- NOTE | 2019-04-14 09:36 | NUR ---
Pain Clinic Assessment: 1. History of Osteoarthritis: DENIES History of Rheumatoid Arthritis: DENIES 2. Height: 5 ft. 10 in. 177.8 cm. Weight: 179.0 lb. oz. 81.194 kg. Patient's BMI: 25.7 3. Vital Signs: BP: 105/67 Pulse: 104 Resp: 14 Temp: 02 Sat: 100 ECG Mon: 4. Pain Intensity: 5 5. Fall Risk: Dizziness: N Needs help standing or walking: N Fallen in the last 3 months: N Fall risk comments: 6. Patient on Blood Thinner: None 7. History of Hypertension: Y 8. Opioid Therapy greater than 6 weeks: Y Opiate Contract Signed: 07/29/15 9. Risk Assessment Tool Provided: L0W-0 10. Functional Assessment Tool: 11. Recreational Drug Use: Never Drug Type: Tobacco Use: Former Smoker Tobacco Type: Amount or Packs/day: How Many Years: Alcohol Use: Past use Frequency: Quant:
--- NOTE | 2019-04-25 10:01 | HPC ---
[facility] [place] [address] PAIN MANAGEMENT CONSULTATION Name: FREDDY CLOUD [id number] Admission: 04/14/19 Attend Phys: Neno Stein MD Discharge: Date of : 70 Report #: [id number] THIS REPORT FOR: cc: Greg Madden MD,Greg Stein,Neno Mesa MD ~ CC: Neno Madden DATE OF SERVICE: 04/14/2019 CHIEF COMPLAINT: Here for medications and still having back pain. HISTORY: The patient is a 48-year-old gentleman who has been followed in the pain clinic. As you recall, he has had 4 back surgeries. Has had some implants placed in the back area. Continues to find that the pain is problematic. His pain is rated as 5/10 today. It involves his right low back area as well as down into the leg. He continues to suffer from post-laminectomy syndrome. First surgery was in 1996. As you may recall, he fell from a roof when he was helping his father placing a roof on the house. ALLERGIES: CODEINE. CURRENT MEDICATIONS: Oxycodone 10/325, methadone 10 mg 1 p.o. t.i.d., zolpidem, tizanidine 4 mg, Zestril PAIN CLINIC ASSESSMENT AND PQRS: 1. History of osteoarthritis. The patient has had four surgeries in the back with implant. 2. Rheumatoid arthritis. The patient is not being treated for rheumatoid arthritis. 3. Height 5 feet 10 inches, weight 179 pounds, BMI is 25.7. 4. Vital Signs: Blood pressure 105/67, pulse 104, respiratory rate 14, room air saturation 100%. 5. Pain intensity /10. 6. Fall history: The patient has not fallen in the last 3 months. 7. Blood thinner. The patient is not on a blood thinning medication. 8. Hypertension. The patient is being treated for hypertension. 9. Opioids greater than 6 weeks. The patient received medication from one source the pain clinic. 10. Risk assessment tool, low for opioid use. 11. Functional assessment tool, . 12. Recreational drug use: The patient denies. 13. The patient does not smoke he does vape. 14. Alcohol: The patient rarely drinks alcoholic beverages. [address] [address] PAIN MANAGEMENT CONSULTATION Name: FREDDY CLOUD Room #: REG [facility]#: [id number] Admission: 04/14/19 Attend Phys: Neno Stein MD Discharge: Date of : 70 Report #: [id number] PHYSICAL EXAMINATION: GENERAL: The patient is a well-developed, well-nourished white male. Appears his stated age. He is alert and oriented x 3. His affect is appropriate. Speech is fluent. HEENT: Normocephalic, atraumatic. Extraocular eye muscles intact. Sclerae nonicteric. Mucous membranes are moist. NECK: Without adenopathy or JVD. HEART: Regular rate. LUNGS: Clear. ABDOMEN: Nontender. MUSCULOSKELETAL: Upper extremity muscle strength judged to be 5/5 for the major muscle groups in the upper extremity. Lower extremity muscle strength judged to be 5-/5 for the major muscle groups. The patient does have some pain in the L4-L5 dermatomal distribution as well as in the L5-S1 dermatomal distribution down to his calf. He has a slight forward lean when walking. Gait is somewhat antalgic. IMPRESSION: 1. Chronic low back pain, status post failed back syndrome, status post 4 surgeries. 2. Chronic pain history requiring complex medical management to control the pain with opioids. 3. Spinal cord stimulator in place and used as needed. 4. Hypertension. RECOMMENDATIONS: We discussed treatment options with the patient. At this juncture, we will continue with his medications. He feels these medications are helpful. He does not have any problems. He is able to do his job at work without problem. He keeps his medications in a guarded area. He is aware that opioid medications have been implemented with loss of life about 70,000 people in the last year. A script for his medications will be rewritten. He will continue with methadone 7.5 mg 1 p.o. b.i.d. The patient will continue with Percocet 10 mg 1 p.o. t.i.d. He will call us if he has any concerns in regards to his medications. We would like to thank you for letting us participate in his care. We hope he continues to improve. <ELECTRONICALLY SIGNED> By: Neno Stein MD 04/25/19 1001 [id number] 1419 Neno Stein MD /TEJA
== END ==
LOC: PAIN 06:48
DX: G89.29 Other chronic pain (principal); M54.5 Low back pain; I10 Essential (primary) hypertension; Z88.5 Allergy status to narcotic agent; Z98.890 Other specified postprocedural states; Z68.25 Body mass index [BMI] 25.0-25.9, adult; Z79.891 Long term (current) use of opiate analgesic; Z79.899 Other long term (current) drug therapy

== ENCOUNTER → 2019-06-16 | Outpatient (CLI) | payer BC, OTHER ==
[~2019-06-16] VITALS: Ht 177.8 cm; Wt 78.9 kg
[2019-06-16 08:10] VITALS: BP 103/80
--- NOTE | 2019-06-16 08:13 | NUR ---
Pain Clinic Assessment: 1. History of Osteoarthritis: DENIES History of Rheumatoid Arthritis: DENIES 2. Height: 5 ft. 10 in. 177.8 cm. Weight: 174.0 lb. oz. 78.926 kg. Patient's BMI: 25.0 3. Vital Signs: BP: 103/80 Pulse: 86 Resp: 13 Temp: 02 Sat: 98 ECG Mon: 4. Pain Intensity: 3 5. Fall Risk: Dizziness: N Needs help standing or walking: N Fallen in the last 3 months: N Fall risk comments: 6. Patient on Blood Thinner: None 7. History of Hypertension: Y 8. Opioid Therapy greater than 6 weeks: Y Opiate Contract Signed: 07/29/15 9. Risk Assessment Tool Provided: L0W-0 10. Functional Assessment Tool: 11. Recreational Drug Use: Never Drug Type: Tobacco Use: Former Smoker Tobacco Type: Amount or Packs/day: How Many Years: Alcohol Use: Past use Frequency: Quant:
--- NOTE | 2019-06-29 15:32 | HPC ---
[facility] [place] [address] PAIN MANAGEMENT CONSULTATION Name: FREDDY CLOUD Room #: REG [facility] FarzanaDexterLouisDexter#: [id number] Admission: 06/16/19 Attend Phys: Neno Stein MD Discharge: Date of : 70 Report #: [id number] THIS REPORT FOR: cc: Greg Madden MD,Greg Stein,Neno Mesa MD ~ CC: Neno Madden DATE OF SERVICE: 06/28/2019 CHIEF COMPLAINT: Medications are still helpful for my back. HISTORY: The patient is a 49-year-old gentleman who has been followed in the pain clinic. He has had 4 back surgeries. He does have some instrumentation in the low back area. He continues to find that his pain is problematic. He finds that his medications have been helpful. He does suffer from post-laminectomy syndrome. First surgery was about 1996. He fell from a roof when he was helping his father, roof of a house. He has been suffering from pain and discomfort since that time. He rates his pain as a 3/10. Pain is worse in the right lower buttocks and down into the posterior portion of his leg. ALLERGIES: CODEINE. CURRENT MEDICATIONS: Oxycodone 10/325, methadone 10 mg 1 p.o. t.i.d., zolpidem, tizanidine 4 mg, Zestril. PAIN CLINIC ASSESSMENT AND PQRS: 1. The patient has had 4 surgeries of his back with implant. He is not being treated for rheumatoid arthritis. 2. Height 5 feet 10 inch, weight 174 pounds, BMI is 25. 3. Vital Signs: Blood pressure is 103/80, pulse 86, respiratory rate 13, room air saturation 98%. 4. Pain intensity 04/17. 5. Fall risk. The patient has not fallen in the last 3 months. 6. Blood thinner. The patient is not on a blood thinning medication. 7. Hypertension. The patient is being treated for hypertension. 8. Opioids greater than 6 weeks. The patient received medication from the pain clinic. 9. Risk assessment tool, low for opioid use. 10. Functional assessment tool, . 11. Recreational drug use. The patient denies. 12. Tobacco: The patient vaps. 13. Alcohol. The patient denies frequent use of alcoholic beverages. PHYSICAL EXAMINATION: [facility] [address] [place] [address] PAIN MANAGEMENT CONSULTATION Name: PEDRO LUISFREDDY HOLBROOK [facility] [id number] Admission: 06/16/19 Attend Phys: Neno Stein MD Discharge: Date of : 70 Report #: [id number] GENERAL: The patient is a well-developed, well-nourished white male. Appears his stated age. He is alert and oriented x 3. His affect is appropriate. Speech is fluent. HEENT: Normocephalic, atraumatic. Extraocular eye muscles intact. Sclerae nonicteric. Mucous membranes are moist. NECK: Without adenopathy or JVD. HEART: Regular rate. LUNGS: Generally clear. ABDOMEN: Nontender. MUSCULOSKELETAL: Upper extremity muscle strength judged to be 5/5 for the major muscle groups in the upper extremity. Lower extremity muscle strength judged to be 5-/5. The patient has pain and discomfort in the L4-L5 dermatomal distribution as well as the L5-S1 dermatomal distribution involving his calf. The patient has a slight forward lean while walking. His gait is somewhat antalgic. IMPRESSION: 1. Chronic low back pain, status post failed back syndrome, status post 4 back surgeries. 2. Chronic pain, requiring complex medical management to help control the pain using opioids. 3. Spinal cord stimulator in place and used as needed. 4. Hypertension. RECOMMENDATIONS: We discussed treatment options with the patient. Risks and benefits of opioid medications were again reviewed. The patient is aware that these medications over time can become less effective. He feels that they are working reasonably well. He would like to continue with their use. He has not show any signs of problems with his medication. He is keeping his medications in a guarded area. He is aware that a number of people have in the past years secondary to overdose of medications. A script for his methadone has been provided. The patient will continue with 7.5 mg p.o. b.i.d. We will also continue with Percocet 10 mg 1 p.o. t.i.d. He will call us if he has any concerns. A script for his medications has been sent to his pharmacy. <ELECTRONICALLY SIGNED> By: Neno Stein MD 06/29/19 1532 [id number] Neno Stein MD /TEJA
== END ==
LOC: PAIN 06:42
DX: M54.5 Low back pain (principal); F11.20 Opioid dependence, uncomplicated; I10 Essential (primary) hypertension; Z96.82 Presence of neurostimulator

== ENCOUNTER 2019-07-30 05:14 | Emergency (ER) | payer BC, OTHER ==
[~2019-07-30] VITALS: Ht 177.8 cm; Wt 74.8 kg
[2019-07-30] MEDS ORDERED: ZANAFLEX4 M2 PO (05:22)
[2019-07-30] MEDS ORDERED: METHADONE10 MG/1 M2 PO ×2 (05:23→05:24)
[2019-07-30] MEDS ORDERED: LISINOPRIL-HCT1 EACH PO (05:25)
[2019-07-30] MEDS ORDERED: PERCOCET 10-321 EAC1 PO (05:25)
[2019-07-30 08:02] LABS: URINE BILIRUBIN NEGATIVE (Negative); URINE BLOOD NEGATIVE (Negative); URINE CLARITY CLEAR; URINE COLOR YELLOW; URINE GLUCOSE-RANDOM* NEGATIVE (Negative); URINE KETONES NEGATIVE (Negative); URINE LEUKOCYTES-REFLEX NEGATIVE (Negative); URINE NITRITE-REFLEX NEGATIVE (Negative); URINE PROTEIN (DIPSTICK) NEGATIVE (Negative); URINE UROBILINOGEN 0.2 E.U./dl (0.2-1.0)
[2019-07-30 08:25] VITALS: BP 127/76
[2019-08-02] MEDS ORDERED: PERCOCET 10-321 EAC1 PO (15:35)
[2019-08-02] MEDS ORDERED: METHADONE HCL5 MG PO (15:35)
== END 2019-07-30 08:26 | disposition home or self-care (01) ==
LOC: ER 05:14
PROVIDERS: Emergency Medicine
DX: M54.5 Low back pain (principal); I10 Essential (primary) hypertension; Z88.5 Allergy status to narcotic agent; Z79.899 Other long term (current) drug therapy

== ENCOUNTER → 2019-08-02 | Outpatient (CLI) | payer BC, OTHER ==
[~2019-08-02] VITALS: Ht 177.8 cm; Wt 76.7 kg
[~2019-08-02] MED LIST changes: +LISINOPRIL-HCT1 EACH PO; +METHADONE10 MG/1 M2 PO; +ZANAFLEX4 M2 PO
[2019-08-02 13:41] VITALS: BP 161/92
--- NOTE | 2019-08-02 13:52 | NUR ---
Pain Clinic Assessment: 1. History of Osteoarthritis: DENIES History of Rheumatoid Arthritis: DENIES 2. Height: 5 ft. 10 in. 177.8 cm. Weight: 169.0 lb. oz. 76.658 kg. Patient's BMI: 24.2 3. Vital Signs: BP: 161/92 Pulse: 83 Resp: 16 Temp: 02 Sat: 100 ECG Mon: 4. Pain Intensity: 5 5. Fall Risk: Dizziness: N Needs help standing or walking: N Fallen in the last 3 months: N Fall risk comments: 6. Patient on Blood Thinner: None 7. History of Hypertension: Y 8. Opioid Therapy greater than 6 weeks: Y Opiate Contract Signed: 07/29/15 9. Risk Assessment Tool Provided: L0W-0 10. Functional Assessment Tool: 11. Recreational Drug Use: Never Drug Type: Tobacco Use: Former Smoker Tobacco Type: Amount or Packs/day: How Many Years: Alcohol Use: Past use Frequency: Quant:
--- NOTE | 2019-08-09 16:00 | HPC ---
[facility] [place] [address] PAIN MANAGEMENT CONSULTATION Name: FREDDY CLOUD [id number] Admission: 08/02/19 Attend Phys: Neno Stein MD Discharge: Date of : 70 Report #: [id number] THIS REPORT FOR: cc: Greg Madden MD,Greg Stein,Neno Mesa MD ~ CC: Neno Madden MD CHIEF COMPLAINT: Low back pain. HISTORY: The patient is a 49-year-old gentleman who has a history of low back pain. Pain typically is in the right side and radiates down to his right leg. He bent down and over a few nights ago, he noticed pain then immediately struck him on the left side and continued to be quite problematic. He went to the Emergency Room. He has had difficulty finding a comfortable position. Most movements exacerbate the pain. He has not had pain similar to this in the past. Does not have a history of renal stones. Has not had a fever. He has methadone as a pain reliever. He also uses Percocet. These medications were not adequate to control his pain. He returns today because of this very difficult situation. ALLERGIES: CODEINE. CURRENT MEDICATIONS: Oxycodone 10/325, methadone 10 mg 1 p.o. t.i.d., zolpidem, tizanidine 4 mg, and Zestril. PAIN CLINIC ASSESSMENT/PQRS: 1. The patient has had 4 surgeries on his back and has had pain and discomfort for quite some time. He is not being treated for rheumatoid arthritis. 2. Height 5 feet 10 inch, weight 169 pounds, and BMI is 24. 3. Vital signs: Blood pressure 161/92, pulse 83, respiratory rate 16, and room air saturation 100%. 4. Pain intensity, 5/10. 5. Fall history: The patient has not fallen. 6. Blood thinner. The patient is not on a blood thinning medication. 7. History of hypertension. The patient is being treated for hypertension. 8. Opioids greater than 6 weeks. The patient receives medication from the Pain Clinic. 9. Risk assessment tool, low for opioid use. 10. Functional assessment tool, /. 11. Recreational drug use. The patient denies. 12. Tobacco: The patient is a former smoker. He does vape. 13. Alcohol. The patient frequently denies frequent use of alcoholic beverages. [facility] [address] [place] [address] PAIN MANAGEMENT CONSULTATION Name: FREDDY CLOUD Room #: REG CLI [facility]#: [id number] Admission: 08/02/19 Attend Phys: Neno Stein MD Discharge: Date of : 70 Report #: [id number] PHYSICAL EXAMINATION: GENERAL: The patient is a well-developed, well-nourished white male. Appears his stated age. He is alert and oriented x 3. His affect is appropriate. He is wearing a mask. HEENT: Normocephalic, atraumatic. Extraocular eye muscles intact. NECK: Without adenopathy or JVD. HEART: Regular rate. LUNGS: Generally clear. MUSCULOSKELETAL: Some discomfort in the L3 and L4 dermatomal distribution in the left paramedian area. There is no tenderness around the spinal cord stimulator generator. The patient complains of pain and discomfort to palpation near the L3-L4 and L4 left paramedian areas. Both of these areas reproduced pain and discomfort, which he is complaining about. IMPRESSION: 1. Myofascial pain, left L3 and left L4 paramedian areas. 2. Chronic low back pain, status post failed back syndrome, status post 4 back surgeries. 3. Chronic pain, requiring complex medical management to help control the pain with opioids. 4. Spinal cord stimulator in place. 5. Hypertension. RECOMMENDATIONS: We discussed treatment options with the patient. At this juncture, he does have some myofascial trigger point areas in the L3 and L4 left paravertebral areas. Palpation in these 2 areas reproduced the patient's considerable portion of the patient's pain. We discussed the options. At this juncture, I think to inject the area with local anesthetic and steroid would be beneficial. The risks of the procedure were discussed. They could include infection, nerve damage, bleeding, spinal headache. The patient elects to proceed. PROCEDURE NOTE: The patient was taken to the procedure area. He was then placed in the right lateral decubitus position. The vertebral body of the L3 was noted. Palpation in this area did reproduce the patient's discomfort. A 25-gauge needle was then advanced into this area. The patient states that this was on the trigger point area. Aspiration was negative. A total of 10 mL of 0.5% bupivacaine was injected. This contained 40 mg triamcinolone. The patient tolerated well. The second trigger point at the lateral area of lumbar 4 was palpated. This reproduced pain and discomfort. A 25-gauge needle was then advanced into this area. The patient states that this did reproduce a component of his pain. Aspiration was negative. A total of 10 mL of 0.5% bupivacaine and 40 mg triamcinolone was injected into the second trigger point area. The patient tolerated the procedure well. Pain was 3-4 at the time of discharge. He will follow up in the future as needed. He will call us if he has any concerns. [facility] [address] [place] [address] PAIN MANAGEMENT CONSULTATION Name: FREDDY CLOUD Room #: REG [facility] Finley#: [id number] Admission: 08/02/19 Attend Phys: Neno Stein MD Discharge: Date of : 70 Report #: [id number] We would like to thank you for letting us participate in his care. We hope he continues to improve. <ELECTRONICALLY SIGNED> By: Neno Stein MD 08/09/19 1600 [id number] 0356 Neno Stein MD /nt
== END | disposition home or self-care (01) ==
LOC: PAIN 06:48
PROVIDERS: ATTEND Anesthesiology Pain Medicine
DX: M79.18 Myalgia, other site (principal); G89.29 Other chronic pain; M54.5 Low back pain; I10 Essential (primary) hypertension; Z98.890 Other specified postprocedural states; Z79.899 Other long term (current) drug therapy; Z79.891 Long term (current) use of opiate analgesic; Z96.82 Presence of neurostimulator; Z88.8 Allergy status to other drugs, medicaments and biological substances

== ENCOUNTER → 2019-10-20 | Outpatient (CLI) | payer BC, OTHER ==
[~2019-10-20] VITALS: Ht 177.8 cm; Wt 74.2 kg
[2019-10-20 08:52] VITALS: BP 126/97
--- NOTE | 2019-10-20 08:54 | NUR ---
Pain Clinic Assessment: 1. History of Osteoarthritis: DENIES History of Rheumatoid Arthritis: DENIES 2. Height: 5 ft. 10 in. 177.8 cm. Weight: 163.6 lb. oz. 74.208 kg. Patient's BMI: 23.5 3. Vital Signs: BP: 126/97 Pulse: 94 Resp: 18 Temp: 02 Sat: 98 ECG Mon: 4. Pain Intensity: 5 5. Fall Risk: Dizziness: N Needs help standing or walking: N Fallen in the last 3 months: N Fall risk comments: 6. Patient on Blood Thinner: None 7. History of Hypertension: Y 8. Opioid Therapy greater than 6 weeks: Y Opiate Contract Signed: 07/29/15 9. Risk Assessment Tool Provided: L0W-0 10. Functional Assessment Tool: 11. Recreational Drug Use: Never Drug Type: Tobacco Use: Former Smoker Tobacco Type: Amount or Packs/day: How Many Years: Alcohol Use: Past use Frequency: Quant:
--- NOTE | 2019-10-23 07:46 | HPC ---
[facility] [address] [place] [address] PAIN MANAGEMENT CONSULTATION Name: FREDDY CLOUD Room #: REG [facility] Tushar#: [id number] Admission: 10/20/19 Attend Phys: Susie Jackson Discharge: Date of : 70 Report #: [id number] THIS REPORT FOR: cc: Greg Madden MD, William MD Hocker,Susie CURRIE ~ CC: Cortez Stein MD DATE OF SERVICE: 10/20/2019 CHIEF COMPLAINT: Low back pain and lumbar radiculopathy. HISTORY OF PRESENT ILLNESS: This is a 49-year-old gentleman who returns to the pain clinic today for refill of his opioid medications. Today, he is reporting pain at a 5/10, mostly located in his right buttock and lower back that does radiate down his legs at times. He states that the trigger point injection that Dr. Stein performed in July helped him 90% for about 2-1/2 months. He feels that last week his back tightened up quite significantly and he has been having increased pain since that time. He has been taking his tizanidine as well as his pain pills. He feels that it is slowly loosening, but that has been most problematic lately. Again, he does have pain that radiates down both legs at times throughout the day. He denies any problems with constipation that is not managed with diet. Overall, he feels like he is very well controlled on his current regimen. ALLERGIES: CODEINE. CURRENT LIST OF MEDICATIONS: Oxycodone 10/325 p.r.n., methadone 5 mg in the morning and 7.5 mg at night and 5 mg in the evening, lisinopril, hydrochlorothiazide, tizanidine 4 mg p.r.n. PQRS: 1. 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 Denies any rheumatoid arthritis. 2. Height is 5 feet 10 inches, weight is 163, BMI is 23. 3. Vital signs 126/97, pulse is 94, respirations 18, oxygen sat is 98, pain score is 5/10. 4. Fall risk. Denies dizziness, does not need help walking or standing, has not fallen in the last 3 months. 5. The patient is not on any blood thinners, but does take medicine for hypertension. 6. Opioid therapy is greater than 6 weeks; therefore, an opioid signed contract is on the chart. Risk assessment is low. Functional assessment is 56/70. 7. Recreational drug use, he denies. He is a former smoker and [place] [address] PAIN MANAGEMENT CONSULTATION Name: FREDDY CLOUD Room #: REG Maddy Hernandez.#: [id number] Admission: 10/20/19 Attend Phys: Susie Jackson Discharge: Date of : 70 Report #: [id number] According to the prescription monitoring system, he is due to fill his medications today, filling them in a timely fashion. His morphine milliequivalent is 120 according to the CDC guidelines. PHYSICAL EXAMINATION: GENERAL: This is a well-developed, well-nourished white male, who appears his stated age, placing his current pain score at 5/10. He is alert and oriented, answering all my questions appropriately. HEENT: Normocephalic, atraumatic. Extraocular eye muscles are intact. He is wearing a mask. NECK: Without adenopathy or JVD. MUSCULOSKELETAL: He has discomfort in the L3-L4 dermatomal distribution that does radiate into his legs presently. He does have palpable tenderness in his lumbosacral region as well. His lower extremity strength is symmetrical at 5/5. There is no tenderness at his spinal cord stimulator generator site. IMPRESSION: 1. Myofascial pain. 2. Chronic low back pain, status post failed back surgery. 3. Lumbar radiculopathy. 4. Spinal cord stimulator in place. 5. Hypertension. 6. Chronic pain, requiring opioid medications under opioid agreement. We reviewed the fact that opiate medications are being used to provide analgesia adequate to support activities of daily living, not attempting to achieve a specific pain score on the 0-10 Visual Analog Scale. The current opiate medications are providing sufficient analgesia to allow the patient to participate in activities of daily living. The patient is not exhibiting any aberrant behavior suggestive of drug diversion. The patient is not having any adverse reactions to medications. The patient is not suffering from daytime somnolence or mental acuity changes. The patient is managing opiate-induced constipation with appropriate [id number]-[id number] agents and dietary considerations. The patient was counseled on concern for caution with operating a motor vehicle while using opiate medications. A physical exam was performed and the patient's functional status was evaluated. All patients with back pain were advised against the bed rest greater than 4 days and were advised to return to normal activities. Pain score assessment was noted and the treatment plan was reviewed with the patient. All current medications, both prescribed and OTC were reviewed and reconciled on the electronic medical record. Tobacco screening was accomplished and smoking cessation was advised when indicated. BMI was noted and diet/exercise modification was recommended for all patients following outside normal parameters. [address] [address] PAIN MANAGEMENT CONSULTATION Name: FREDDY CLOUD Room #: REG NEPTALI Finley#: [id number] Admission: 10/20/19 Attend Phys: Susie Jackson Discharge: Date of : 70 Report #: [id number] I reviewed with the patient today their responsibilities to safeguard prescription medications, reviewed their responsibility to utilize medications only as prescribed by the physician. They are to seek and receive pain medications only from 1 physician group ( [facility]). They are to use 1 pharmacy and keep the clinic informed if they change pharmacies. Their responsibilities include making followup visits in a timely fashion and to avoid abrupt discontinuation of medication usage. Their responsibilities further include bringing their medications (bottles from the pharmacy with residual pills) to the visit for possible confirmation of pill counts and the patient understands it is their responsibility to submit to random drug screens to ensure both that the medications prescribed are present, and that no other controlled substances are present. All prescriptions provided today were generated electronically. PLAN: 1. We discussed treatment options with the patient today. The patient finds his medication very beneficial in controlling most of his pain, though recently he has had some increased myofascial pain in the past week. I encouraged hot showers as well as stretching and to take his tizanidine on a regular basis during these flares. Today, we will resend his tizanidine 4 mg q. 8 hours, #60 with 2 additional refills. 2. We will continue him on his methadone 5 mg tablets, #120 for today and 4-week supply as well as his oxycodone 10/325, #90 for today and 4-week supply. 3. We did discuss briefly that we may perform a trigger point injection in the future if his pain continues or if it becomes problematic for lumbar radiculopathy that we could have him see Dr. Ric Stein for a lumbar epidural steroid injection. At this time, the patient feels he is controlled on his current regimen. 4. The patient seen in collaboration with Dr. Ric Stein. He will return in 2 months. <ELECTRONICALLY SIGNED> By: Susie Jackson 10/23/19 0746 0917 1232 Susie Jackson /nt
== END ==
LOC: PAIN 06:49
PROVIDERS: ATTEND Clinical Nurse Specialist Adult Health
DX: M54.16 Radiculopathy, lumbar region (principal); M79.10 Myalgia, unspecified site; M96.1 Postlaminectomy syndrome, not elsewhere classified; Z96.82 Presence of neurostimulator; Z88.5 Allergy status to narcotic agent; Z79.899 Other long term (current) drug therapy

== ENCOUNTER → 2019-12-01 | Outpatient (CLI) | payer BC, OTHER ==
[~2019-12-01] VITALS: Ht 177.8 cm; Wt 77.7 kg
[~2019-12-01] MED LIST changes: +LIORESAL 10 MG10 MG PO; +MEDROLDOSEPACK PO
[2019-12-01 10:02] VITALS: BP 118/82
--- NOTE | 2019-12-01 10:05 | NUR ---
Pain Clinic Assessment: 1. History of Osteoarthritis: DENIES History of Rheumatoid Arthritis: DENIES 2. Height: 5 ft. 10 in. 177.8 cm. Weight: 171.4 lb. oz. 77.747 kg. Patient's BMI: 24.6 3. Vital Signs: BP: 118/82 Pulse: 94 Resp: 18 Temp: 02 Sat: 98 ECG Mon: 4. Pain Intensity: 4 5. Fall Risk: Dizziness: N Needs help standing or walking: N Fallen in the last 3 months: N Fall risk comments: 6. Patient on Blood Thinner: None 7. History of Hypertension: Y 8. Opioid Therapy greater than 6 weeks: Y Opiate Contract Signed: 07/29/15 9. Risk Assessment Tool Provided: L0W-0 10. Functional Assessment Tool: 11. Recreational Drug Use: Never Drug Type: Tobacco Use: Former Smoker Tobacco Type: Amount or Packs/day: How Many Years: Alcohol Use: Past use Frequency: Quant:
--- NOTE | 2019-12-20 14:02 | HPC ---
[facility] [place] [address] PAIN MANAGEMENT CONSULTATION Name: FREDDY CLOUD Room #: REG [facility] Tushar#: [id number] Admission: 12/01/19 Attend Phys: Neno Stein MD Discharge: Date of : 70 Report #: [id number] THIS REPORT FOR: cc: Greg Madden MD,Greg Stein,Neno Mesa MD ~ CC: Neno Madden DATE OF SERVICE: 12/01/2019 CHIEF COMPLAINT: Low back pain. HISTORY: The patient is a 49-year-old gentleman who has been followed in the pain clinic because of chronic low back pain. He has had back surgery. He has experienced pain that radiated down to his right leg. He recently bent over. After bending over, he noticed worsening of pain. He has had chiropractic treatment in the past, which has helped. He notes that in the morning, his back is tightening up. It initially was on the right side, now it is on the left and right. He has returned today with the hopes of medication changes to help decrease the pain and discomfort he is experiencing at this point. ALLERGIES: CODEINE. CURRENT MEDICATIONS: Oxycodone 10 mg/325, methadone 10 mg 1 p.o. t.i.d., zolpidem, tizanidine 4 mg, Zestril. PAIN CLINIC ASSESSMENT AND PQRS: 1. The patient has had 4 back surgeries and has had pain and discomfort for some time. He is not being treated for rheumatoid arthritis. 2. Height 5 feet 10 inches, weight 171 pounds, BMI is 24. 3. Vital signs: Blood pressure 118/82, pulse 92, respiratory rate 18, room air saturation 98%. 4. Pain intensity has increased to 4. 5. Risk assessment tool: The patient has not fallen in the last 3 months. 6. Blood thinner: The patient is not on a blood thinning medication. 7. Hypertension: The patient is being treated for hypertension. 8. Opioids: The patient receives opioid medications from the pain clinic. 9. Risk assessment tool: Low for opioid use. 10. Functional assessment tool: 56/70. 11. Recreational drug use: The patient denies. 12. Tobacco: The patient vapes. 13. Alcohol: The patient denies frequent use of alcoholic beverages. PHYSICAL EXAMINATION: GENERAL: The patient is a well-developed, well-nourished white male. [address] [address] PAIN MANAGEMENT CONSULTATION Name: FREDDY CLOUD Room #: REG CLI [facility]#: [id number] Admission: 12/01/19 Attend Phys: Neno Stein MD Discharge: Date of : 70 Report #: [id number] his stated age. He is alert and oriented x 3. His affect is appropriate. Speech is fluent. He is wearing a facial covering. NECK: Without adenopathy or JVD. LUNGS: Clear to auscultation. HEART: Regular rate. ABDOMEN: Nontender. MUSCULOSKELETAL: The patient has some discomfort in the L3-L4 dermatomal distribution and pain in the left paramedian area. He notes some tightness and discomfort in low back area. He does have a spinal cord stimulator in place. The patient notes increased back pain, tightness with pain radiating down the left and right leg. IMPRESSION: 1. Chronic pain in the low back area in the left L3-L4 paramedian areas. 2. Chronic back pain, status post failed back syndrome, 4 back surgeries in the past. 3. Chronic pain, requiring complex medical management to help control the pain. 4. Spinal cord stimulator placement. 5. Hypertension. RECOMMENDATIONS: We discussed treatment options with the patient. He is having more pain, which is more problematic. He has pain that is radiating down to posterior portion of his right thigh and into the lateral right calf and foot. He is occasionally having pain that is radiating down the left leg in the same path and down to the level of his knee. The pain has been noticeably worse in the first 4-5 hours each morning. He has been taking muscle relaxants. We will have the patient try a conservative approach. A script with a Medrol Dosepak has been provided. The patient will also continue with his oxycodone 10 mg 1 p.o. t.i.d. to q.i.d., #100 tablets have been provided. The patient will continue with methadone 5 mg 1 p.o. t.i.d., #120 tablets have been provided. The patient will use 1 tablet a.m., one half tablet midday for a total of 7.5 mg t.i.d. We would like to thank you for letting us participate in his care. He will call us if he has any concerns. <ELECTRONICALLY SIGNED> By: Neno Stein MD 12/20/19 1402 1029 0780 Neno Stein MD /nt
== END ==
LOC: PAIN 08:56
PROVIDERS: ATTEND Anesthesiology Pain Medicine
DX: M54.5 Low back pain (principal); I10 Essential (primary) hypertension; F11.20 Opioid dependence, uncomplicated; G89.29 Other chronic pain; Z88.5 Allergy status to narcotic agent; Z79.899 Other long term (current) drug therapy

== ENCOUNTER → 2020-02-23 | Outpatient (CLI) | payer BC, OTHER ==
[~2020-02-23] VITALS: Ht 177.8 cm; Wt 75.9 kg
[2020-02-23 09:39] VITALS: BP 117/73
--- NOTE | 2020-02-23 09:48 | NUR ---
Pain Clinic Assessment: 1. History of Osteoarthritis: DENIES History of Rheumatoid Arthritis: DENIES 2. Height: 5 ft. 10 in. 177.8 cm. Weight: 167.4 lb. oz. 75.932 kg. Patient's BMI: 24.0 3. Vital Signs: BP: 117/73 Pulse: 97 Resp: 18 Temp: 02 Sat: 98 ECG Mon: 4. Pain Intensity: 2 5. Fall Risk: Dizziness: N Needs help standing or walking: N Fallen in the last 3 months: N Fall risk comments: 6. Patient on Blood Thinner: None 7. History of Hypertension: Y 8. Opioid Therapy greater than 6 weeks: Y Opiate Contract Signed: 07/29/15 9. Risk Assessment Tool Provided: L0W-0 10. Functional Assessment Tool: 11. Recreational Drug Use: Never Drug Type: Tobacco Use: Former Smoker Tobacco Type: Amount or Packs/day: How Many Years: Alcohol Use: Past use Frequency: Quant:
== END ==
LOC: PAIN 06:56
PROVIDERS: ATTEND Anesthesiology Pain Medicine
DX: G89.29 Other chronic pain (principal); I10 Essential (primary) hypertension; Z79.891 Long term (current) use of opiate analgesic

== ENCOUNTER → 2020-04-26 | Outpatient (CLI) | payer BC, OTHER ==
[~2020-04-26] VITALS: Ht 177.8 cm; Wt 76.7 kg
[2020-04-26 08:39] VITALS: BP 127/77
--- NOTE | 2020-04-26 08:48 | NUR ---
Pain Clinic Assessment: 1. History of Osteoarthritis: DENIES History of Rheumatoid Arthritis: DENIES 2. Height: 5 ft. 10 in. 177.8 cm. Weight: 169.0 lb. oz. 76.658 kg. Patient's BMI: 24.2 3. Vital Signs: BP: 127/77 Pulse: 93 Resp: 14 Temp: 02 Sat: 98 ECG Mon: 4. Pain Intensity: 7 5. Fall Risk: Dizziness: N Needs help standing or walking: N Fallen in the last 3 months: N Fall risk comments: 6. Patient on Blood Thinner: None 7. History of Hypertension: Y 8. Opioid Therapy greater than 6 weeks: Y Opiate Contract Signed: 07/29/15 9. Risk Assessment Tool Provided: L0W-0 10. Functional Assessment Tool: 11. Recreational Drug Use: Never Drug Type: Tobacco Use: Former Smoker Tobacco Type: Amount or Packs/day: How Many Years: Alcohol Use: Past use Frequency: Quant:
== END ==
LOC: PAIN 06:47
PROVIDERS: ATTEND Anesthesiology Pain Medicine
DX: M54.5 Low back pain (principal); I10 Essential (primary) hypertension; M96.1 Postlaminectomy syndrome, not elsewhere classified; G89.29 Other chronic pain; F11.20 Opioid dependence, uncomplicated; Z88.8 Allergy status to other drugs, medicaments and biological substances; Z79.899 Other long term (current) drug therapy

== ENCOUNTER → 2020-06-26 | Outpatient (CLI) | payer BC, OTHER ==
[~2020-06-26] VITALS: Ht 177.8 cm; Wt 74.2 kg
[2020-06-26 08:37] VITALS: BP 133/79
--- NOTE | 2020-06-26 08:41 | NUR ---
Pain Clinic Assessment: 1. History of Osteoarthritis: DENIES History of Rheumatoid Arthritis: DENIES 2. Height: 5 ft. 10 in. 177.8 cm. Weight: 163.6 lb. oz. 74.208 kg. Patient's BMI: 23.5 3. Vital Signs: BP: 133/79 Pulse: 85 Resp: 16 Temp: 02 Sat: 98 ECG Mon: 4. Pain Intensity: 3 5. Fall Risk: Dizziness: N Needs help standing or walking: N Fallen in the last 3 months: N Fall risk comments: 6. Patient on Blood Thinner: None 7. History of Hypertension: Y 8. Opioid Therapy greater than 6 weeks: Y Opiate Contract Signed: 07/29/15 9. Risk Assessment Tool Provided: L0W-0 10. Functional Assessment Tool: 11. Recreational Drug Use: Never Drug Type: Tobacco Use: Vaping Tobacco Type: E-Cigarettes Amount or Packs/day: 5 How Many Years: Alcohol Use: Past use Frequency: Quant:
== END ==
LOC: PAIN 08:18
PROVIDERS: ATTEND Anesthesiology Pain Medicine
DX: M96.1 Postlaminectomy syndrome, not elsewhere classified (principal); M54.5 Low back pain; G89.29 Other chronic pain; I10 Essential (primary) hypertension; Z79.899 Other long term (current) drug therapy; Z79.891 Long term (current) use of opiate analgesic; Z96.82 Presence of neurostimulator; Z88.5 Allergy status to narcotic agent

== ENCOUNTER → 2020-08-23 | Outpatient (CLI) | payer BC, OTHER ==
[~2020-08-23] VITALS: Ht 177.8 cm; Wt 77.9 kg
[~2020-08-23] MED LIST changes: +BACLOFEN 10MG T10 MG PO
[2020-08-23 08:16] VITALS: BP 161/98
--- NOTE | 2020-08-23 08:18 | NUR ---
Pain Clinic Assessment: 1. History of Osteoarthritis: DENIES History of Rheumatoid Arthritis: DENIES 2. Height: 5 ft. 10 in. 177.8 cm. Weight: 171.8 lb. oz. 77.928 kg. Patient's BMI: 24.7 3. Vital Signs: BP: 161/98 Pulse: 93 Resp: 14 Temp: 02 Sat: 97 ECG Mon: 4. Pain Intensity: 4 NOW 8 W/ACTIVITY 5. Fall Risk: Dizziness: N Needs help standing or walking: N Fallen in the last 3 months: N Fall risk comments: 6. Patient on Blood Thinner: None 7. History of Hypertension: Y 8. Opioid Therapy greater than 6 weeks: Y Opiate Contract Signed: 07/29/15 9. Risk Assessment Tool Provided: L0W-0 10. Functional Assessment Tool: 11. Recreational Drug Use: Never Drug Type: Tobacco Use: Vaping Tobacco Type: E-Cigarettes Amount or Packs/day: How Many Years: Alcohol Use: Past use Frequency: Quant:
== END ==
LOC: PAIN 07:11
PROVIDERS: ATTEND Clinical Nurse Specialist Adult Health
DX: G89.29 Other chronic pain (principal); M54.9 Dorsalgia, unspecified; I10 Essential (primary) hypertension; Z79.891 Long term (current) use of opiate analgesic; Z79.899 Other long term (current) drug therapy; Z88.5 Allergy status to narcotic agent

== ENCOUNTER → 2020-10-25 | Outpatient (CLI) | payer BC, OTHER ==
[~2020-10-25] VITALS: Ht 177.8 cm; Wt 79.0 kg
[2020-10-25 08:57] VITALS: BP 110/77
--- NOTE | 2020-10-25 09:02 | NUR ---
Pain Clinic Assessment: 1. History of Osteoarthritis: DENIES History of Rheumatoid Arthritis: DENIES 2. Height: 5 ft. 10 in. 177.8 cm. Weight: 174.2 lb. oz. 79.017 kg. Patient's BMI: 25.0 3. Vital Signs: BP: 110/77 Pulse: 83 Resp: 14 Temp: 02 Sat: 97 ECG Mon: 4. Pain Intensity: 5 5. Fall Risk: Dizziness: N Needs help standing or walking: N Fallen in the last 3 months: N Fall risk comments: 6. Patient on Blood Thinner: None 7. History of Hypertension: Y 8. Opioid Therapy greater than 6 weeks: Y Opiate Contract Signed: 07/29/15 9. Risk Assessment Tool Provided: L0W-0 10. Functional Assessment Tool: 11. Recreational Drug Use: Never Drug Type: Tobacco Use: Vaping Tobacco Type: Amount or Packs/day: How Many Years: Alcohol Use: Past use Frequency: Quant:
== END ==
LOC: PAIN 06:59
PROVIDERS: ATTEND Clinical Nurse Specialist Adult Health
DX: M54.16 Radiculopathy, lumbar region (principal); G89.29 Other chronic pain; Z79.891 Long term (current) use of opiate analgesic; Z79.899 Other long term (current) drug therapy; Z96.82 Presence of neurostimulator

== ENCOUNTER → 2020-12-25 | Outpatient (CLI) | payer BC, OTHER ==
[~2020-12-25] VITALS: Ht 177.8 cm; Wt 82.2 kg
[~2020-12-25] MED LIST changes: +TIZANIDINE HCL4 M2 PO
[2020-12-25 08:37] VITALS: BP 157/92
--- NOTE | 2020-12-25 14:12 | HPC ---
[facility] [place] [address] PAIN MANAGEMENT CONSULTATION Name: FREDDY CLOUD Room #: REG [facility]..#: [id number] Admission: 12/25/20 Attend Phys: Susie Jackson Discharge: Date of : 70 Report #: [id number] THIS REPORT FOR: cc: Greg Madden MD,Greg Jackson,Susie CURRIE ~ cc: Greg Madden MD, Cortez Stein MD DATE OF SERVICE: 12/25/2020 CHIEF COMPLAINT: Chronic low back pain with radiculopathy. HISTORY OF PRESENT ILLNESS: This is a pleasant 50-year-old gentleman who returns to the pain clinic today for renewal of his medications. Today, the patient is reporting increasing back pain as radiating down his legs bilaterally. He reports bending over on Wednesday to get ready for work and "tweaked his back." He has had intense muscle spasms and pain radiating since that time. He has been at home, resting and using heat and ice to the back as well as his medication and tizanidine. He felt like he was feeling better and able to return to work today. Unfortunately, here at this appointment, his back is tight again and he is rating his pain a 7/10. He describes it as a sharp, stabbing, aching sensation that is worse in the right leg than the left. Normally, his pain is worse as the day progresses when he is at work and lying down as well as his medication are beneficial. He denies issues with constipation or daytime somnolence when he takes his opioid medication. He does state that tizanidine 4 mg tablet taken during the day, does cause him to be sleepy. He typically does not take that medication during the day or takes a half a tablet. ALLERGIES: CODEINE. MEDICATIONS: Methadone 5 mg 3 times a day, oxycodone 10/325 p.r.n., tizanidine, lisinopril, hydrochlorothiazide. PQRS: 1. 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 Denies any rheumatoid arthritis. Height is 5 feet 10 inches, weight is 181, BMI is 26. 2. Vital signs 157/92, pulse is 90, respirations 14, oxygen sat is 100. 3. Pain score 7/10. Denies dizziness, does not need assistance with ambulation, has not fallen in the last 3 months. 4. The patient is not on any blood thinners, but does take medicine for hypertension. His opioid therapy is greater than 6 weeks; therefore, an opioid signed contract is on the chart. 5. Risk assessment is low. Functional assessment is 56/70. 6. Recreational drug use, he denies. He does vape e-cigarettes and does not drink alcohol. According to the prescription monitoring system, he is filling appropriately for his medications, filling them in a timely fashion, due to fill [address] [address] PAIN MANAGEMENT CONSULTATION Name: FREDDY CLOUD Room #: REG NEPTALI Finley#: [id number] Admission: 12/25/20 Attend Phys: Susie Jackson Discharge: Date of : 70 Report #: [id number] his methadone, oxycodone today with a morphine mEq of 105. We will collect a random drug screen on this patient as well today. PHYSICAL EXAMINATION: GENERAL: This is a well-developed, well-nourished, well-hydrated, pleasant 50-year-old gentleman who appears his stated age, rating the pain score today at 7/10. HEENT: Normocephalic, atraumatic. Extraocular eye muscles are intact. He is wearing a mask for COVID precautions. NECK: Without adenopathy or JVD. MUSCULOSKELETAL: He is without significant scoliosis, kyphosis, or lordosis. He has tenderness in his low back that radiates down his legs bilaterally, greater on the right today than the left following the L3-L4 dermatomal distribution with numerous trigger points noted in his lumbosacral region for myofascial pain today. He has a spinal cord stimulator in place. Positive straight leg raising bilaterally. Lower extremity strength is symmetrical at 5/5. IMPRESSION: 1. Chronic pain in the lumbar region at the L3-L4 dermatomal distribution. 2. Lumbar radiculopathy. 3. Failed back syndrome. 4. Spinal cord stimulator placement. 5. Myofascial pain. 6. Complex medical management utilizing scheduled opioid medications. We reviewed the fact that opiate medications are being used to provide analgesia adequate to support activities of daily living, not attempting to achieve a specific pain score on the 0-10 Visual Analog Scale. The current opiate medications are providing sufficient analgesia to allow the patient to participate in activities of daily living. The patient is not exhibiting any aberrant behavior suggestive of drug diversion. The patient is not having any adverse reactions to medications. The patient is not suffering from daytime somnolence or mental acuity changes. The patient is managing opiate-induced constipation with appropriate [id number]-[id number] agents and dietary considerations. The patient was counseled on concern for caution with operating a motor vehicle while using opiate medications. A physical exam was performed and the patient's functional status was evaluated. All patients with back pain were advised against the bed rest greater than 4 days and were advised to return to normal activities. Pain score assessment was noted and the treatment plan was reviewed with the patient. All current medications, both prescribed and OTC were reviewed and reconciled on the electronic medical record. Tobacco screening was accomplished and smoking cessation was advised when indicated. BMI was noted and diet/exercise modification was recommended for all patients following outside normal [facility] [address] [place] [address] PAIN MANAGEMENT CONSULTATION Name: PEDRO LUISFREDDY HOLBROOK Room #: REG NEPTALI Hernandez.#: [id number] Admission: 12/25/20 Attend Phys: Susie Jackson Discharge: Date of : 70 Report #: [id number] parameters. I reviewed with the patient today their responsibilities to safeguard prescription medications, reviewed their responsibility to utilize medications only as prescribed by the physician. They are to seek and receive pain medications only from 1 physician group ( [facility]). They are to use 1 pharmacy and keep the clinic informed if they change pharmacies. Their responsibilities include making followup visits in a timely fashion and to avoid abrupt discontinuation of medication usage. Their responsibilities further include bringing their medications (bottles from the pharmacy with residual pills) to the visit for possible confirmation of pill counts and the patient understands it is their responsibility to submit to random drug screens to ensure both that the medications prescribed are present, and that no other controlled substances are present. All prescriptions provided today were generated electronically. PLAN: 1. We discussed treatment options with the patient today. The patient is having a flare in his back pain with radicular symptoms. It has been going for 3 days now. I encouraged the patient to continue his heat, ice and gentle stretching when in the shower as well as taking his muscle relaxants. If the patient's pain continues past Wednesday, I encouraged him to call and make an appointment with Dr. Stein for a possible injection in his back. The patient verbalizes understanding. He will now go home and rest, lying down has been beneficial. We will continue him on his oxycodone 10/325 #100 and methadone 5 mg tablets three times a day. Scripts will be sent for [address] Stein electronically. 2. I will continue him on his tizanidine 4 mg tablets #60 with 2 additional refills will be sent electronically. The patient has not been taking this on a daily basis and has not had a prescription since earlier this year. 3. We will collect a random drug screen on this patient today. He reports taking his medication this morning. Time spent in consultation, reviewing recent studies and clinical notes, physical examination and correlation of findings and medical documentation to determine possible treatment options 16 minutes. Time spent preparing for appointment, reviewing prescription monitoring system reports, reviewing previous records and proposed treatment options and reviewing current medications 5 minutes. Time spent preparing and sending electronic prescriptions with collaborating physician, Dr. Stein and documentation of visit and plan of treatment [address] [address] PAIN MANAGEMENT CONSULTATION Name: FREDDY CLOUD Room #: REG NEPTALI Finley#: [id number] Admission: 12/25/20 Attend Phys: Susie ROSEY Jackson Discharge: Date of : 70 Report #: [id number] Total time spent 26 minutes. <ELECTRONICALLY SIGNED> By: Susie Jackson 12/25/20 1412 0 [id number] Susie Jackson /nt
== END ==
LOC: PAIN 08:27
PROVIDERS: ATTEND Clinical Nurse Specialist Adult Health
DX: G89.29 Other chronic pain (principal); M54.50 Low back pain, unspecified; M54.16 Radiculopathy, lumbar region; M96.1 Postlaminectomy syndrome, not elsewhere classified; M79.18 Myalgia, other site; Z88.8 Allergy status to other drugs, medicaments and biological substances; Z79.899 Other long term (current) drug therapy

== ENCOUNTER → 2021-02-26 | Outpatient (CLI) | payer BC, OTHER ==
[~2021-02-26] VITALS: Ht 182.9 cm; Wt 82.5 kg
[2021-02-26 10:10] VITALS: BP 134/79
--- NOTE | 2021-02-26 10:17 | NUR ---
Pain Clinic Assessment: 1. History of Osteoarthritis: DENIES History of Rheumatoid Arthritis: DENIES 2. Height: 6 ft. 0 in. 182.9 cm. Weight: 181.8 lb. oz. 82.464 kg. Patient's BMI: 24.7 3. Vital Signs: BP: 134/79 Pulse: 84 Resp: 16 Temp: 02 Sat: 100 ECG Mon: 4. Pain Intensity: 4 5. Fall Risk: Dizziness: N Needs help standing or walking: N Fallen in the last 3 months: N Fall risk comments: 6. Patient on Blood Thinner: None 7. History of Hypertension: Y 8. Opioid Therapy greater than 6 weeks: Y Opiate Contract Signed: 07/29/15 9. Risk Assessment Tool Provided: L0W-0 10. Functional Assessment Tool: 11. Recreational Drug Use: Never Drug Type: Tobacco Use: Vaping Tobacco Type: E-Cigarettes Amount or Packs/day: How Many Years: Alcohol Use: Past use Frequency: Quant:
== END | disposition home or self-care (01) ==
LOC: PAIN 06:57
PROVIDERS: ATTEND Clinical Nurse Specialist Adult Health
DX: G89.29 Other chronic pain (principal); M54.16 Radiculopathy, lumbar region; M54.50 Low back pain, unspecified; M96.1 Postlaminectomy syndrome, not elsewhere classified; Z88.8 Allergy status to other drugs, medicaments and biological substances; Z79.899 Other long term (current) drug therapy